=== PATIENT | male | born 1975 | race Caucasian/White ===

== ENCOUNTER 2023-06-23 15:46 | Observation (INO) ==
--- NOTE | 2023-06-23 15:55 | ED Triage Note ---
Date of Service June 23, 2023 Provider in Triage Author: Jacquelin Garcia History of Present Illness This patient was briefly evaluated while in triage. An abbreviated physical exam was performed. This patient is a 48-year-old Male who presents to the ED for evaluation [facility] sent by [facility] physician for "cardiac assessment" reportedly had an abnormal EKG and echo in the last week no current complaints per patient caller from medical at the [facility] reports [place]UM[place] and SOB when laying down Physical Exam GENERAL: NAD CARDIOVASCULAR: RRR RESPIRATORY: CTA ABDOMEN: BS x 4. Nontender to palpation. Initial orders for labs and / or imaging were placed and patient was placed in the waiting area until a bed is available. Please see further documentation for the full ED course.
[2023-06-23 16:23] LABS: Basophils # (auto) 0.05 K/uL (0.00-0.20); Basophils % (auto) 0.5 %; Eosinophils # (auto) 0.08 K/uL (0.00-0.50); Eosinophils % (auto) 0.8 %; Hematocrit (blood only) 40.1 % (42.0-52.0); Hemoglobin 13.7 g/dl (14.0-18.0); Immature Granulocytes # (auto) 0.01 K/uL (0.01-0.20); Immature Granulocytes % (auto) 0.1 %; Lymphocytes # (auto) 3.75 K/uL (1.20-3.40); Mean Corpuscular Hemoglobin 28.5 pg (25.0-34.0); Mean Corpuscular Hgb Conc 34.2 g/dL (32.0-36.0); Mean Corpuscular Volume 83.5 fL (80.0-100.0); Mean Platelet Volume 10.5 fL (9.4-12.4); Monocytes # (auto) 0.94 K/uL (0.11-0.59); Monocytes % (auto) 9.8 %; Neutrophils # (auto) 4.78 K/uL (1.40-6.50); Neutrophils % (auto) 49.8 %; Platelet Count 283 K/uL (130-400); RDW Coefficient of Variation 12.4 % (11.5-14.5); RDW Standard Deviation 37.7 fL (36.4-46.3); White Blood Count 9.61 K/ul (4.8-10.8)
--- NOTE | 2023-06-23 16:24 | XRay Report ---
XR chest 2V PA/lateral CLINICAL HISTORY: Chest pain, nonspecific TECHNIQUE: 2 views of the chest were obtained. Comparison: Comparison is made to chest radiograph 09/14/2022 FINDINGS: No lines and tubes are seen. The cardiomediastinal silhouette is stable. The lungs are clear. No evid ence of pleural effusion or pneumothorax. IMPRESSION: No acute chest disease. ACT 112: Negative or not required by law. Electronically signed by: Raymond Tenorio M.D. 06/23/2023 4:23 PM
[2023-06-23 16:42] LABS: Albumin Level 5.1 gm/dl (3.4-5.0); BUN Creatinine Ratio 20.8 (10-20); Bilirubin,Total 0.7 mg/dl (0.2-1.0); Calcium 9.7 mg/dl (8.6-10.3); Creatinine Clr Calc Pharmacy 108.3 ml/min; Est GFR (African American) 96.4 ml/min; Est GFR (Non-African American) 83.2 ml/min; Globulin 2.6 gm/dl (2.5-4.0); Potassium 3.6 mmol/L (3.5-5.1); Total Protein 7.7 gm/dl (6.0-8.3)
[2023-06-23 16:49] LABS: Troponin I High Sensitivity 8.2 pg/ml (0-20)
[2023-06-23 16:51] LABS: Partial Thromboplastin Time 28 Seconds (21-31); Prothrombin Time 10.6 Seconds (9.0-12.0)
[2023-06-23 17:46] LABS: Magnesium 2.1 mg/dl (1.7-2.4)
--- NOTE | 2023-06-23 18:38 | History & Physical Report ---
Date of Service June 23, 2023 Assessment & Plan (1) Abnormal echocardiogram: Plan: This is a 48yo M with PMH of COPD, mood disorder, GENARO generally noncompliant with CPAP who was sent from [facility] for abnormal EKG and 2D echo in the past week. No report was provided Phone sign out to ED was that patient reported to [facility] a week ago with complaints of orthopnea and echo showed severely reduced EF at 22% EKG today with sinus rhythm with marked sinus arrhythmia and PACs that have previously been noted, aberrant conduction now present Patient is resting comfortably, vital signs stable, initial troponin and electrolytes within normal limits Chest x-ray with stable cardiomediastinal silhouette, lungs are clear, no acute chest disease Discussed with [facility] staff, who are faxing over med list and echo report Repeat 2D echo, repeat EKG in AM, routine cardiology consult (2) COPD (chronic obstructive pulmonary disease): Plan: Chronic, stable. No longer smoking. Continue home inhalers (3) BPH (benign prostatic hyperplasia): Plan: Chronic, stable. Continue tamsulosin, bladder scan PRN (4) Depressive disorder: (5) Panic disorder: Plan: Chronic, stable. Continue buspirone DVT Ppx: SQ heparin Code status: FULL PCP: JACK Peters Dispo: obs PCU Patient seen in collaboration with Dr. Mathias. Please see addendum. I spent a total of 60 minutes coordinating, documenting, and providing care for this patient excluding time spent in the performance of separately billed services. History of Present Illness Chief Complaint: abnormal ekg and echo Primary Care Provider: [facility] This is a 48yo M with PMH of COPD, mood disorder, GENARO generally noncompliant with CPAP who was sent from [facility] for abnormal EKG and 2D echo in the past week. No records were sent but patient reportedly had EF reduced at 22%. Recently presented to [facility] due to shortness of breath laying flat and underwent echo within the last week, patient thinks. Today, he states he is able to lay down flat but has difficulty breathing when on right side and has interm ittent cramping chest pains when in that position. Otherwise denies any chest pain or SOB with exertion. Denies any lower extremity swelling or PND. Denies weight gain. No recent illness, no F/C, lightheadedness, wheezing, N/V, abdominal pain, dysuria, diarrhea or constipation. Endorses remote use of cocaine when he was a teenager but has been incarcerated for most of his life. Endorses former use of tobacco, marijuana, K2 and Suboxone at various points while at [facility] but nothing recently. Denies any knowledge of heart condition in the past besides admission in September 2022 for PVCs when he was discharged from ED. No known family history of HD, CHF or arrhythmias. Allergies Allergy/AdvReac Type Severity Reaction Status Date / Time No Known Allergies Allergy Verified 06/23/23 19:36 Home Medications Medication Instructions Recorded Confirmed Type fluticasone 500 mcg-salmeterol 50 1 inh inhalation BID 03/11/21 06/23/23 History mcg/dose blistr powdr for inhalation (Wixela Inhub) omeprazole 40 mg capsule,delayed 40 mg PO QAM 03/11/21 06/23/23 History release albuterol sulfate 90 mcg/actuation 2 puff inhalation QID PRN 06/23/23 06/23/23 History aerosol inhaler Shortness Of Breath Or Wheezing aspirin 81 mg tablet,delayed 81 mg PO DAILY 06/23/23 06/23/23 History release cetirizine 10 mg tablet (Zyrtec) 10 mg PO DAILY 06/23/23 06/23/23 History diclofenac sodium 100 mg 100 mg PO BID 06/23/23 06/23/23 History tablet,extended release 24 hr furosemide 20 mg tablet (Lasix) 20 mg PO QAM 06/23/23 06/23/23 History gabapentin 300 mg capsule 300 mg PO TID 06/23/23 06/23/23 History lisinopril 20 mg tablet 20 mg PO DAILY 06/23/23 06/23/23 History methylprednisolone 4 mg tablets in 0 mg PO DAILY 06/23/23 06/23/23 History a dose pack (Medrol (Sathya)) metoprolol tartrate 25 mg tablet 25 mg PO BID 06/23/23 06/23/23 History spironolactone 25 mg tablet 25 mg PO DAILY 06/23/23 06/23/23 History (Aldactone) Past Med/Surg History Medical History (Updated 06/23/23 @ 19:17 by Heaven Peñaloza PA-C) BPH (benign prostatic hyperplasia) Bladder pain Nocturia Lower urinary tract symptoms GENARO (obstructive sleep apnea) Per records Obesity (BMI 30-39.9) Incarcerated umbilical hernia GERD (gastroesophageal reflux disease) Persistent asthma Per records COPD (chronic obstructive pulmonary disease) inhaler daily/prn Panic disorder Depressive disorder Surgical History (Updated 06/23/23 @ 19:17 by Heaven Peñaloza PA-C) H/O ventral hernia repair (06/26/21) Robotic Laparoscopic Umbilical and Ventral Hernia Repair- Reginald Irwin DO, TORITO 06/26/2021 H/O umbilical hernia repair (06/26/21) Robotic Laparoscopic Umbilical and Ventral Hernia Repair- Reginald Irwin DO, FACS 06/26/2021 Family History Other Asthma COPD (chronic obstructive pulmonary disease) Social History Smoking Status: Former smoker Preferred Language: Paraguayan Communication Ability: unknown Visual Impairment: No Limitations Grab Jack Worker Required: No Beliefs That Will Affect Care: None marital status: Single Current Living Situation: Other Current Living Situation Comment: Incarcerated Feels Safe at Home: Yes Review of Systems Review of Systems: At least ten systems reviewed and negative except as noted in the HPI. Physical Exam Physical Exam: General Appearance: WD/WN, vitals as above, NAD, sitting up in bed, pleasant, conversing easily Head: normocephalic, atraumatic Eyes: normal inspection, PERRL, conjunctivae normal, anicteric sclerae ENT: external ear and nose normal, oropharynx normal Neck: normal visual inspection, trachea midline, no thyromegaly Respiratory: normal respiratory effort, lungs clear to auscultation, no wheeze, rales, rhonchi. No accessory muscle use Cardiovascular: regular rate with ectopy, regular rhythm, normal peripheral pulses, no BLE edema. Vessels: no JVD Chest: normal inspection of chest Abdomen/GI: normal bowel sounds, soft, nontender, no hepatosplenomegaly Extremities/Musculoskeletal: no cyanosis or clubbing, extremities motor strength 5/5 Neurologic: PERRL, EOMI, accommodation nl, no face palsy, no dysarthria, CN's II-XI intact bilaterally and moves all extremities Psychiatric: A+Ox3, euthymic affect Skin: no rashes, normal color, warm/dry Results & Data Results & Data Vital Signs (Past 12 Hours) Vital Signs Temp Pulse Pulse Resp BP BP Pulse Ox 06/23/23 18:35 85 18 96 06/23/23 18:30 77 24 96 06/23/23 18:00 66 19 95 06/23/23 17:30 83 15 95 06/23/23 17:24 91 H 06/23/23 17:23 89 20 95 06/23/23 17:21 89 19 130/64 97 06/23/23 15:51 36.7 C 64 20 175/83 H 97 O2 Del Method 06/23/23 18:35 Room Air 06/23/23 18:30 06/23/23 18:00 06/23/23 17:30 06/23/23 17:24 06/23/23 17:23 06/23/23 17:21 06/23/23 15:51 Room Air Laboratory Results Short CBC 06/23/23 Range/Units 16:02 WBC 9.61 (4.8-10.8) K/ul Hgb 13.7 L (14.0-18.0) g/dl Hct 40.1 L (42.0-52.0) % Plt Count 283 (130-400) K/uL BMP 06/23/23 16:02 Sodium 142 Potassium 3.6 Chloride 103 Carbon Dioxide 31 BUN 22 Creatinine 1.06 Glucose 98 Calcium 9.7 Liver Function 06/23/23 Range/Units 16:02 Total Bilirubin 0.7 (0.2-1.0) mg/dl AST 16 (13-39) U/L ALT 16 (7-52) U/L Alkaline Phosphatase 72 (34-104) U/L Albumin 5.1 H (3.4-5.0) gm/dl Diagnostic Findings Chest X-Ray 06/23/23 15:55 XR chest 2V PA/lateral CLINICAL HISTORY: Chest pain, nonspecific TECHNIQUE: 2 views of the chest were obtained. Comparison: Comparison is made to chest radiograph 09/14/2022 FINDINGS: No lines and tubes are seen. The cardiomediastinal silhouette is stable. The lungs are clear. No evidence of pleural effusion or pneumothorax. IMPRESSION: No acute chest disease. ACT 112: Negative or not required by law. Electronically signed by: Raymond Tenorio M.D. 06/23/2023 4:23 PM ECG Additional Comments: EKG reviewed- Sinus rhythm with marked sinus arrhythmia with Premature atrial complexes with Aberrant conduction, Prolonged QT Abnormal ECG. When compared with from September 2022, aberrant conduction is now present. Code Status & VTE Plan VTE Prophylaxis Plan VTE Prophylaxis will be ordered: Yes Supervising Physician Co-Signing Physician Notes Attending addendum: The patient was seen and examined in emergency room He was sent in from the senior living with an abnormal EKG and echo Patient is having no symptoms at all-occasional palpitation, no shortness of br eath, no orthopnea, no chest pain, no swelling of the legs He has asthma/COPD and was told that his heart has been working about 25%. On examination Lying in bed without any acute distress Remains hemodynamically stable Chest-clear to auscultate bilaterally Heart S1-S2-, occasional extra beats with a 2/6 ESM over precordium Abdomen-benign Extremities-no edema TAXONOMY TEACHER-alert, awake and oriented x 3. No focal sensory or motor deficit appreciated His admission labs-unremarkable, EKG sinus rhythm with frequent PVCs, chest x- ray COPD changes without any CHF and echo report was not available He will be admitted to telemetry unit and will get repeat echo Cardiology consult and will get echo report from the senior living Continue with her current medication Agree with assessment and plan as outlined above by ISHAN Sharma Dr
[2023-06-23] MEDS: ALBUT/IPRATROP 3MG/0.5MG NEB 3 ML VIAL NEB STA (18:39)
[2023-06-23 22:11] LABS: Appearance Urine Cloudy (Clear); Bacteria Urine Automated Negative (Negative); Bilirubin Urine Negative (Negative); Blood Urine Negative (Negative); Color Urine Dark Yellow; Epithelial Cell Urine Auto >30 /lpf (0-5); Glucose Urine UA Negative (Negative); Ketones Urine Trace (Negative); Leukocyte Esterase Urine Negative (Negative); Nitrite Urine Negative (Negative); Protein Urine 1+ (Negative); RBC Urine Automated 0-4 /hpf (0-4); Urobilinogen Urine Negative (Negative)
[2023-06-23 22:23] LABS: Mucus Urine Present (None Prsent)
[2023-06-23 22:36] LABS: Amphetamines+Metham, Urine Neg (Neg); Barbiturates, Urine Neg (Neg); Benzodiazepine, Urine Neg (Neg); Cocaine, Urine Neg (Neg); MDMA (Ecstacy), Urine Neg (Neg); Marijuana, Urine Neg (Neg); Methadone, Urine Neg (Neg); Opiate, Urine Neg (Neg); Phencyclidine, Urine Neg (Neg)
[2023-06-23] MEDS ORDERED: POLYETHYLENE (MIRALAX) 17 GM PACK PO PRN (22:42)
[2023-06-23] MEDS ORDERED: ACETAMINOPHEN 325 MG TAB PO PRN (22:42)
[2023-06-23] MEDS ORDERED: ALBUTEROL HFA 8 GM INHALER INH PRN (22:42)
[2023-06-23] MEDS ORDERED: ONDANSETRON INJ 2 MG/ML 2 ML VIAL IV PRN (22:42)
--- NOTE | 2023-06-23 23:17 | Emergency Department Note ---
History of Present Illness General Chief complaint: Cardiac Assessment Stated complaint: CARDIAC ASSESSMENT, ABNORMAL EKG Time Seen by Provider: 06/23/23 17:08 History of Present Illness Provider complaint: Poor cardiac function 48-year-old male prisoner with history of cocaine abuse presents emergency department for poor cardiac function. Report was called by the healthcare provider at the retirement who spoke with a colleague of alexa in the emergency department and stated the patient had a recent echo done at their facility which showed an EF of 22%. They stated that they wanted the patient to have a cardiac workup and be admitted for possible cardiac catheterization. This time the patient not reporting any chest pain or difficulty breathing. No falls or syncopal episodes. No melena or hematochezia. Home Medications Medication Instructions Recorded Confirmed Type fluticasone 500 mcg-salmeterol 50 1 inh inhalation BID 03/11/21 06/23/23 History mcg/dose blistr powdr for inhalation (Wixela Inhub) omeprazole 40 mg capsule,delayed 40 mg PO QAM 03/11/21 06/23/23 History release albuterol sulfate 90 mcg/actuation 2 puff inhalation QID PRN 06/23/23 06/23/23 History aerosol inhaler Shortness Of Breath Or Wheezing aspirin 81 mg tablet,delayed 81 mg PO DAILY 06/23/23 06/23/23 History release cetirizine 10 mg tablet (Zyrtec) 10 mg PO DAILY 06/23/23 06/23/23 History diclofenac sodium 100 mg 100 mg PO BID 06/23/23 06/23/23 History tablet,extended release 24 hr furosemide 20 mg tablet (Lasix) 20 mg PO QAM 06/23/23 06/23/23 History gabapentin 300 mg capsule 300 mg PO TID 06/23/23 06/23/23 History lisinopril 20 mg tablet 20 mg PO DAILY 06/23/23 06/23/23 History metoprolol tartrate 25 mg tablet 25 mg PO BID 06/23/23 06/23/23 History spironolactone 25 mg tablet 25 mg PO DAILY 06/23/23 06/23/23 History (Aldactone) Allergies Allergy/AdvReac Type Severity Reaction Status Date / Time No Known Allergies Allergy Verified 06/23/23 19:36 Past Med/Surg History Medical History BPH (benign prostatic hyperplasia) Bladder pain Nocturia Lower urinary tract symptoms GENARO (obstructive sleep apnea) Per records Obesity (BMI 30-39.9) Incarcerated umbilical hernia GERD (gastroesophageal reflux disease) Persistent asthma Per records COPD (chronic obstructive pulmonary disease) inhaler daily/prn Panic disorder Depressive disorder Surgical History H/O ventral hernia repair (06/26/21) Robotic Laparoscopic Umbilical and Ventral Hernia Repair- Reginald Irwin DO, TORITO 06/26/2021 H/O umbilical hernia repair (06/26/21) Robotic Laparoscopic Umbilical and Ventral Hernia Repair- Reginald Irwin DO, FACS 06/26/2021 Family History Other Asthma COPD (chronic obstructive pulmonary disease) Social History Smoking Status: Former smoker Do You Dip or Chew Tobacco: No; Hx Alcohol Use: No Hx Substance Use: No Preferred Language: Lao Communication Ability: Effective Visual Impairment: No Limitations Gate Tender Required: No Beliefs That Will Affect Care: None marital status: Single Current Living Situation: Other Current Living Situation Comment: [employer] Other Information That Helps Us Care for You: No Feels Safe at Home: Yes Safety Concerns: Feels Safe At This Time Assistive Devices: None Physical Exam Vital Signs Vital Signs - 24 hr 06/23/23 15:51 06/23/23 17:21 06/23/23 17:23 Temperature 36.7 C Temperature Source Temporal Artery Scan Pulse Rate 64 89 Pulse Rate [Right Finger] 89 Pulse Rate from SpO2 Sensor 60 Respiratory Rate 20 19 20 Respiratory Effort / Characteristics Non-Labored Spontaneous Respiratory Depth Normal Respiratory Pattern Regular Blood Pressure 175/83 H Blood Pressure [Right Arm] 130/64 Blood Pressure Mean 113 Blood Pressure Mean [Right Arm] 86 Pulse Oximetry 97 97 95 Oxygen Delivery Method Room Air Sepsis Recent Fever Within 48 Hours No Sepsis New/Unexplained Change in Mental Status No Sepsis Action Taken by Nursing No Action Required 06/23/23 17:24 06/23/23 17:30 06/23/23 18:00 Temperature Temperature Source Pulse Rate 91 H 83 66 Pulse Rate [Right Finger] Pulse Rate from SpO2 Sensor 55 L 49 L Respiratory Rate 15 19 Respiratory Effort / Characteristics Respiratory Depth Respiratory Pattern Blood Pressure Blood Pressure [Right Arm] Blood Pressure Mean Blood Pressure Mean [Right Arm] Pulse Oximetry 95 95 Oxygen Delivery Method Sepsis Recent Fever Within 48 Hours Sepsis New/Unexplained Change in Mental Status Sepsis Action Taken by Nursing 06/23/23 18:30 06/23/23 18:35 06/23/23 18:37 Temperature Temperature Source Pulse Rate 77 85 84 Pulse Rate [Right Finger] Pulse Rate from SpO2 Sensor 52 L 48 L Respiratory Rate 24 18 15 Respiratory Effort / Characteristics Respiratory Depth Respiratory Pattern Blood Pressure 135/76 Blood Pressure [Right Arm] Blood Pressure Mean 95 Blood Pressure Mean [Right Arm] Pulse Oximetry 96 96 93 Oxygen Delivery Method Room Air Sepsis Recent Fever Within 48 Hours Sepsis New/Unexplained Change in Mental Status Sepsis Action Taken by Nursing Physical Exam GENERAL: oriented to person, place, and time. appears well-developed and well- nourished. Patient with correctional officers at bedside. HENT: Exam performed. - Head: Normocephalic and atraumatic. EYES: Conjunctivae and EOM are normal. Right eye exhibits no discharge. Left eye exhibits no discharge. No scleral icterus. NECK: Normal range of motion. Neck supple. No JVD present. CV: Normal rate, regular rhythm, normal heart sounds and intact distal pulses. There is no peripheral edema. Palpable radial pulses bue. PULM/CHEST: Effort normal and breath sounds normal. No respiratory distress. No stridor. no wheezes. no rales. ABD: The abdomen is soft. There is no tenderness. NEURO: Motor and sensation grossly intact. SKIN: Skin is warm and dry. He is not diaphoretic. PSYCH: normal mood and affect. Behavior is normal. Judgment and thought content normal. Course Course 170: The patient was evaluated in room C8. A complete history and physical exam was performed Cardiac monitoring: An order was placed for continuous cardiac monitoring. The monitor shows a rate of 90 with sinus rhythm interpreted by me 1845: Vital signs stable. Labs and imaging within normal limits. [facility] requested by the present for his abnormal echocardiogram. Administered Medications Discontinued Medications Albuterol (Albut/Ipratrop 3mg/0.5mg Neb 3 Ml Vial) 3 ml NEB NOW STA; Protocol Stop: 06/23/23 17:49 Last Admin: 06/23/23 18:39 Dose: Not Given Documented By: ALDAIR Medical Decision Making Laboratory Data Attestation: I reviewed the patient's lab results. 06/23/23 16:02 06/23/23 16:02 Lab Results 06/23/23 Range/Units 16:02 WBC 9.61 (4.8-10.8) K/ul RBC 4.80 (4.70-6.10) M/uL Hgb 13.7 L (14.0-18.0) g/dl Hct 40.1 L (42.0-52.0) % MCV 83.5 (80.0-100.0) fL MCH 28.5 (25.0-34.0) pg MCHC 34.2 (32.0-36.0) g/dL RDW Std Deviation 37.7 (36.4-46.3) fL RDW Coeff of Bridget 12.4 (11.5-14.5) % Plt Count 283 (130-400) K/uL MPV 10.5 (9.4-12.4) fL Immature Gran % (Auto) 0.1 % Neut % (Auto) 49.8 % Lymph % (Auto) 39.0 % Dane % (Auto) 9.8 % Eos % (Auto) 0.8 % Baso % (Auto) 0.5 % Neut # (Auto) 4.78 (1.40-6.50) K/uL Lymph # (Auto) 3.75 H (1.20-3.40) K/uL Dane # (Auto) 0.94 H (0.11-0.59) K/uL Eos # (Auto) 0.08 (0.00-0.50) K/uL Baso # (Auto) 0.05 (0.00-0.20) K/uL Immature Gran # (Auto) 0.01 (0.01-0.20) K/uL PT 10.6 (9.0-12.0) Seconds INR 1.0 (0.9-1.1) APTT 28 (21-31) Seconds PTT Ratio 1.0 Sodium 142 (136-145) mmol/L Potassium 3.6 (3.5-5.1) mmol/L Chloride 103 (98-107) mmol/L Carbon Dioxide 31 (21-32) mmol/L Anion Gap 8 (3-11) BUN 22 (6-23) mg/dl Creatinine 1.06 (0.6-1.4) mg/dl Est Cr Clr Drug Dosing 108.3 ml/min Est GFR ( Amer) 96.4 ml/min Est GFR (Non-Af Amer) 83.2 ml/min BUN/Creatinine Ratio 20.8 H (10-20) Glucose 98 (70-99(Fasting)) mg/dl Calcium 9.7 (8.6-10.3) mg/dl Magnesium 2.1 (1.7-2.4) mg/dl Total Bilirubin 0.7 (0.2-1.0) mg/dl AST 16 (13-39) U/L ALT 16 (7-52) U/L Alkaline Phosphatase 72 (34-104) U/L Troponin I High Sens 8.2 (0-20) pg/ml Total Protein 7.7 (6.0-8.3) gm/dl Albumin 5.1 H (3.4-5.0) gm/dl Globulin 2.6 (2.5-4.0) gm/dl Albumin/Globulin Ratio 2.0 (0.9-2) Imaging Data Attestation: I personally reviewed and interpreted this imaging study as follows: My Impression: Chest x-ray negative. Airway clear. No pneumothorax. No consolidation. No cardiomegaly or cephalization.. No free air under the diaphragm. No fractures of the skeletal structures. Radiologist's Impression: Chest X-Ray 06/23/23 15:55 XR chest 2V PA/lateral CLINICAL HISTORY: Chest pain, nonspecific TECHNIQUE: 2 views of the chest were obtained. Comparison: Comparison is made to chest radiograph 09/14/2022 FINDINGS: No lines and tubes are seen. The cardiomediastinal silhouette is stable. The lungs are clear. No evidence of pleural effusion or pneumothorax. IMPRESSION: No acute chest disease. ACT 112: Negative or not required by law. Electronically signed by: Raymond Tenorio M.D. 06/23/2023 4:23 PM ECG Data Attestation: I personally reviewed and interpreted this ECG as follows: Rate (beats per minute): 94 Rhythm: + normal sinus ECG Intervals/blocks: + Normal QRS, + Normal [place] and + Normal QT-c ECG ST segments: + Normal ST segments ECG Findings: + PVCs [facility] Narrative 1708: The patient was evaluated in room C8. A complete history and physical exam was performed Cardiac monitoring: An order was placed for continuous cardiac monitoring. The monitor shows a rate of 90 with sinus rhythm interpreted by me 1845: Vital signs stable. Labs and imaging within normal limits. Patient will be admitted to the [facility] hospitalist team for cardiac evaluation as requested by the present for his abnormal echocardiogram. Impression & Plan Abnormal echocardiogram Discharge Plan Visit Data Chief Complaint: Cardiac Assessment Stated Complaint: CARDIAC ASSESSMENT, ABNORMAL EKG ED Provider: Jose Roberto Wiley Discharge Problem: Abnormal echocardiogram Patient Disposition: Being Evaluated by Hospitalist Discharge Instructions Interventions: ED Discharge Assessment Last Done: 06/23/23 22:42
[2023-06-24] MEDS: DICLOFENAC SODIUM 25 MG TABDR PO SCH (00:31)
[2023-06-24] MEDS: METOPROLOL TARTRATE 25 MG TAB PO SCH (00:31)
[2023-06-24] MEDS: GABAPENTIN 300 MG CAP PO SCH (00:31)
[2023-06-24] MEDS: HEPARIN SOD 5,000 UNIT/0.5 ML VIAL SQ SCH (00:31)
[2023-06-24 04:31] LABS: Hematocrit (blood only) 36.6 % (42.0-52.0); Hemoglobin 12.3 g/dl (14.0-18.0); Mean Corpuscular Hemoglobin 28.3 pg (25.0-34.0); Mean Corpuscular Hgb Conc 33.6 g/dL (32.0-36.0); Mean Corpuscular Volume 84.1 fL (80.0-100.0); Mean Platelet Volume 10.4 fL (9.4-12.4); Platelet Count 227 K/uL (130-400); RDW Coefficient of Variation 12.4 % (11.5-14.5); RDW Standard Deviation 37.4 fL (36.4-46.3); Red Blood Count 4.35 M/uL (4.70-6.10); White Blood Count 6.62 K/ul (4.8-10.8)
[2023-06-24 04:33] LABS: BUN Creatinine Ratio 19.3 (10-20); Calcium 8.9 mg/dl (8.6-10.3); Chol HDL Ratio 4.4 (0-5); Creatinine Clr Calc Pharmacy 137.4 ml/min; Est GFR (African American) 121.4 ml/min; Est GFR (Non-African American) 104.8 ml/min; Potassium 4.2 mmol/L (3.5-5.1)
[2023-06-24 07:40] LABS: Estimated Average Glucose 105 mg/dl; Hemoglobin A1C 5.3 % (4.5-5.6)
--- NOTE | 2023-06-24 08:05 | Hospitalist Progress Note ---
Date of Service June 24, 2023 Assessment & Plan (1) Abnormal echocardiogram: (2) COPD (chronic obstructive pulmonary disease): (3) BPH (benign prostatic hyperplasia): (4) Depressive disorder: (5) Panic disorder: Plan Mr. Cheatham is a 48yo gentleman with PMH of COPD, mood disorder, GENARO generally noncompliant with CPAP who was sent from [facility] for abnormal EKG and 2D echo in the past week. Patient states that he felt nasal congestion. The physician at the [facility] did a chest x ray and told him that his heart looked "too big" and his EKG was "not normal." He states he doesn't have orthopnea, chest pain, SOB/BRUMFIELD, or edema. He denies family history of heart issues/sudden cardiac . He denies any recent illness. #New onset Heart Failure with reduced ejection fraction #Nonischemic cardiomyopathy #Frequent Ventricular Ectopy Phone sign out to ED was that patient reported to [facility] a week ago with complaints of congestion and echo showed severely reduced EF at 22% EKG today with sinus rhythm with marked sinus arrhythmia and PACs that have p reviously been noted, aberrant conduction now present Chest x-ray with stable cardiomediastinal silhouette, lungs are clear, no acute chest disease Discussed with [facility] staff, who are faxing over med list and echo report ECHO 06/24 15-20%, severe global hypokinesis of LV, mildly dlated LA Lipid panel: LDL 104 LH: normal coronaries Denies any longstanding history of substance abuse--endorses occasional cocacine/marijuana, but nothing "consistent" or habitual GDMT: -Spironolactone 12.5mg daily -Lisinopril 10mg daily -Furosemide 20mg daily -Metoprolol XL 25mg qam Further autoimmune, HIV labs sent for eval #Chronic normocytic anemia -B12, folate, iron studies in am #COPD Chronic, stable. No longer smoking. Continue home inhalers #BPH Chronic, stable. Continue tamsulosin, bladder scan PRN #Panic Disorder Chronic, stable. Continue buspirone DVT Ppx: SQ heparin Code status: FULL PCP: JACK [place] Dispo: obs PCU Admission and Anticipated Discharge Date Admission Date: June 23, 2023 Subjective Patient evalauted at [facility] s/p C Denies any chest pain or acute concerns; reports not understanding current situation, Time spent to explain "heart failure", all questions answered at bedisde Patient reports feeling relatively asymptomatic and with strong appetite Physical Exam Constitutional: WD/WN, vitals as above Respiratory: normal respiratory effort, lungs clear to auscultation Cardiovascular: RRR, no murmur, no edema Gastrointestinal (Abdomen): normal bowel sounds, soft, nontender, no hepatosplenomegaly Musculoskeletal: no cyanosis or clubbing, extremities motor strength 5/5 Results & Data Results & Data Vital Signs (Past 12 Hours) Vital Signs Pulse Resp BP Pulse Ox O2 Del Method 06/24/23 07:38 61 06/24/23 06:01 62 15 98 06/24/23 06:01 116/66 06/24/23 06:00 72 19 96 06/24/23 04:04 58 L 14 121/61 98 06/24/23 02:00 39 L 12 119/52 L 95 Room Air 06/24/23 01:56 57 L 14 117/57 L 95 Room Air 06/24/23 00:00 86 17 98 Room Air 06/23/23 23:00 92 H 21 140/68 98 Room Air 06/23/23 23:00 Room Air 06/23/23 23:00 Room Air 06/23/23 21:50 90 06/23/23 21:00 76 15 119/58 L 96 Room Air 06/23/23 20:31 84 18 134/58 L 97 Room Air Laboratory Results Short CBC 06/23/23 06/24/23 Range/Units 16:02 04:03 WBC 9.61 6.62 (4.8-10.8) K/ul Hgb 13.7 L 12.3 L (14.0-18.0) g/dl Hct 40.1 L 36.6 L (42.0-52.0) % Plt Count 283 227 (130-400) K/uL BMP 06/23/23 06/24/23 16:02 04:03 Sodium 142 140 Potassium 3.6 4.2 Chloride 103 105 Carbon Dioxide 31 31 BUN 22 16 Creatinine 1.06 0.83 Glucose 98 100 H Calcium 9.7 8.9 Liver Function 06/23/23 Range/Units 16:02 Total Bilirubin 0.7 (0.2-1.0) mg/dl AST 16 (13-39) U/L ALT 16 (7-52) U/L Alkaline Phosphatase 72 (34-104) U/L Albumin 5.1 H (3.4-5.0) gm/dl Urine 06/23/23 Range/Units Unknown Urine Color Dark Yellow Urine Appearance Cloudy A (Clear) Urine pH 6.0 (4.5-7.5) Ur Specific [place] 1.040 H (1.000-1.030) Urine Protein 1+ H (Negative) Urine Glucose (UA) Negative (Negative) Medications Administered Home Medications Medication Instructions Recorded Confirmed Last Taken fluticasone 500 mcg-salmeterol 50 1 inh inhalation BID 03/11/21 06/23/23 06/23/23 07:30 mcg/dose blistr powdr for inhalation (Wixela Inhub) omeprazole 40 mg capsule,delayed 40 mg PO QAM 03/11/21 06/23/23 06/23/23 release albuterol sulfate 90 mcg/actuation 2 puff inhalation QID PRN 06/23/23 06/23/23 Unknown aerosol inhaler Shortness Of Breath Or Wheezing aspirin 81 mg tablet,delayed 81 mg PO DAILY 06/23/23 06/23/23 06/23/23 release cetirizine 10 mg tablet (Zyrtec) 10 mg PO DAILY 06/23/23 06/23/23 06/23/23 diclofenac sodium 100 mg 100 mg PO BID 06/23/23 06/23/23 06/23/23 07:30 tablet,extended release 24 hr furosemide 20 mg tablet (Lasix) 20 mg PO QAM 06/23/23 06/23/23 06/23/23 gabapentin 300 mg capsule 300 mg PO TID 06/23/23 06/23/23 06/23/23 12:00 lisinopril 20 mg tablet 20 mg PO DAILY 06/23/23 06/23/23 06/23/23 metoprolol tartrate 25 mg tablet 25 mg PO BID 06/23/23 06/23/23 06/23/23 07:00 spironolactone 25 mg tablet 25 mg PO DAILY 06/23/23 06/23/23 06/23/23 (Aldactone) Active Medications Generic Name Dose Route Start Last Admin Trade Name Freq PRN Reason Stop Dose Admin Aspirin 81 mg 06/24/23 09:00 06/24/23 08:43 Aspirin 81 Mg Ectab PO 07/24/23 08:59 81 mg DAILY KENNEDI Administration Cetirizine HCl 10 mg 06/24/23 09:00 06/24/23 08:45 Cetirizine Hcl 10 Mg Tablet PO 07/24/23 08:59 10 mg DAILY KENNEDI Administration Diclofenac Sodium 100 mg 06/23/23 22:42 06/24/23 08:43 Diclofenac Sodium 25 Mg Tabdr PO 07/23/23 22:41 100 mg BID KENNEDI Administration Fluticasone/Vilanterol 1 puffs 06/24/23 09:00 06/24/23 08:42 Fluticasone/Vilanterol 200/25mcg 14 Puffs/Inhaler INH 07/24/23 08:59 Not Given DAILY KENNEDI Furosemide 20 mg 06/24/23 09:00 06/24/23 08:46 Furosemide 20 Mg Tab PO 07/24/23 08:59 20 mg QAM KENNEDI Administration Gabapentin 300 mg 06/23/23 22:42 06/24/23 08:45 Gabapentin 300 Mg Cap PO 07/23/23 22:41 300 mg TID KENNEDI Administration Heparin Sodium (Porcine) 5,000 units 06/23/23 22:42 06/24/23 06:06 Heparin Sod 5,000 Unit/0.5 Ml Vial SQ 07/23/23 22:41 5,000 units Q8 KENNEDI Administration Pantoprazole Sodium 40 mg 06/24/23 09:00 06/24/23 08:44 Pantoprazole 40 Mg Tab PO 07/24/23 08:59 40 mg QAM KENNEDI Administration
--- NOTE | 2023-06-24 08:34 | Cardiology Consultation ---
Date of Consultation June 24, 2023 Assessment & Plan (1) Systolic congestive heart failure: (2) Frequent PVCs: (3) Bradycardia: (4) Abnormal EKG: (5) Abnormal echocardiogram: Plan Systolic congestive heart failure. NYHA Class I-II. LVEF reported as 20 to 24% (echo pending this admission). Narrow QRS duration. Patient maintaining sinus rhythm with frequent PVCs and nocturnal bradycardia (untreated obstructive sleep apnea). Volume status: Normovolemic. Recommendations: 1. Evaluate possible etiologies. 2. Refer for diagnostic cardiac catheterization 3. Initiate guideline directed medical therapies. 4. Compliance with CPAP therapy. 5. Further recommendations pending evaluation by Dr. Lewis and patient's ongoing hospitalization. Supervising Physician Co-Signing Physician Notes Patient was seen and personally examined. Agree with full assessment and plan as outlined by advanced provider. 48-year-old [facility] inmate recently evaluated initially for symptoms of nasal congestion.ears. Chest x-ray demonstrated cardiomegaly and subsequent EKG sinus with frequent ventricular ectopy. Echocardiogram at [facility] and on repeat demonstrates diffuse LV dysfunction. No history of angina, myocardial infarction, congestive heart failure per patient. Management discussed in detail Laboratory testing pending renal function normal Patient incarcerated for 6 yrs Exam: Heart rate 80 blood pressure 124/65 No jugular venous tension or carotid bruit Lungs clear to auscultation Cardiovascular exam regular with frequent ventricular ectopy, no audible murmur Right radial pulse 2+, femoral pulses 2+ No edema Impression: 48-year-old male with newly diagnosed diffuse cardiomyopathy class I 2 symptoms Management options discussed with patient laboratory testing performed Echocardiogram reviewed Discussed exclusion of coronary artery disease and patient scheduled for diagnostic coronary angiography today. Procedure and risk explained in detail to the patient and informed consent obtained History of Present Illness Reason for Consultation: Abnormal EKG. Abnormal resting echocardiogram Requesting Physician: Heaven Peñaloza PA-C/Dr. Mathias Attending Physician: Dr. Rudd History of Present Illness Aj Cheatham is a 49-year-old male prisoner at [facility] who was referred to the [facility] Emergency Room on June 23, 2023 for cardiac evaluation. Patient notes [facility] where an abnormal EKG was observed and resting echocardiography revealed se verely reduced left ventricular systolic function with an ejection fraction of 22%. Patient describes being placed on activity restriction. Approximately one week ago he was prescribed furosemide, spironolactone, lisinopril, and metoprolol tartrate. He notes taking these medications one day only, not continuing as he did not feel the need. Patient denies cardiac history and current cardiac complaints. Notes being placed on activity restriction, previously without cardiopulmonary limitation. Patient specifically denies history of CAD, [place], CHF, arrhythmia, heart murmur, rheumatic fever, or scarlet fever. Patient denies chest pain, palpitations other than those associated with strenuous activity, shortness of breath, supine cough, orthopnea, PND, abdominal bloating, lower extremity peripheral edema, activity related dizziness, near-syncope, or syncope. Data: - EKG on presentation to the ER revealed sinus rhythm at 94 bpm with marked sinus arrhythmia with premature ventricular complexes and a QTc of 480 ms. - HS Troponin negative x 1 - BNP not obtained - Review of telemetry in the ER, C08, reveals sinus/sinus bradycardia with frequent ectopy. Bradycardia into the 30s noted overnight - Chest x-ray showed a stable cardiomediastinal silhouette with clear lungs, without evidence of pleural effusion or pneumothorax - CBC this morning revealed a white blood cell count was normal, 6.62. H&H were low at 12.3 and 36.6. Platelet count was normal at 227 K. - Chemistry panel this morning a sodium of 140. Potassium 4.2. BUN 16. Creatinine 0.83. Fasting glucose 100. Hemoglobin A1c 5.3%. Calcium 8.9 - Lipid panel performed on June 24, 2023 demonstrated the following: Total cholesterol 159. LDL 104. HDL 36. Triglycerides 94. - TSH was normal on September 14, 2022, 2.195 uIu/mL Past Medical and Surgical History Systolic congestive heart failure, EF 22% Frequent PVCs COPD/asthma Sleep apnea, noncompliant with CPAP GERD BPH with LUTS Mood disorder Panic disorder Incarcerated umbilical hernia status post repair Ventral hernia status postrepair Family History: Not notable for coronary artery disease. Multiple family members young from drug overdoses. Social History: Originally from the [place] area. Notes being incarcerated most of his life. Notes prior tobacco use, none of late. Notes history of substance abuse including cocaine as a teenager and various substances throughout his incarceration including marijuana, K2, Suboxone. No substance abuse recently. No alcohol. Allergies Allergy/AdvReac Type Severity Reaction Status Date / Time No Known Allergies Allergy Verified 06/23/23 19:36 Home Medications Medication Instructions Recorded Confirmed Type fluticasone 500 mcg-salmeterol 50 1 inh inhalation BID 03/11/21 06/23/23 History mcg/dose blistr powdr for inhalation (Wixela Inhub) omeprazole 40 mg capsule,delayed 40 mg PO QAM 03/11/21 06/23/23 History release albuterol sulfate 90 mcg/actuation 2 puff inhalation QID PRN 06/23/23 06/23/23 History aerosol inhaler Shortness Of Breath Or Wheezing aspirin 81 mg tablet,delayed 81 mg PO DAILY 06/23/23 06/23/23 History release cetirizine 10 mg tablet (Zyrtec) 10 mg PO DAILY 06/23/23 06/23/23 History diclofenac sodium 100 mg 100 mg PO BID 06/23/23 06/23/23 History tablet,extended release 24 hr furosemide 20 mg tablet (Lasix) 20 mg PO QAM 06/23/23 06/23/23 History gabapentin 300 mg capsule 300 mg PO TID 06/23/23 06/23/23 History lisinopril 20 mg tablet 20 mg PO DAILY 06/23/23 06/23/23 History metoprolol tartrate 25 mg tablet 25 mg PO BID 06/23/23 06/23/23 History spironolactone 25 mg tablet 25 mg PO DAILY 06/23/23 06/23/23 History (Aldactone) Patient History Medical History BPH (benign prostatic hyperplasia) Bladder pain Nocturia Lower urinary tract symptoms GENARO (obstructive sleep apnea) Per records Obesity (BMI 30-39.9) Incarcerated umbilical hernia GERD (gastroesophageal reflux disease) Persistent asthma Per records COPD (chronic obstructive pulmonary disease) inhaler daily/prn Panic disorder Depressive disorder Surgical History H/O ventral hernia repair (06/26/21) Robotic Laparoscopic Umbilical and Ventral Hernia Repair- Reginald Irwin DO, TORITO 06/26/2021 H/O umbilical hernia repair (06/26/21) Robotic Laparoscopic Umbilical and Ventral Hernia Repair- Reginald Irwin DO, FACS 06/26/2021 Family History Other Asthma COPD (chronic obstructive pulmonary disease) Social History Smoking Status: Former smoker Do You Dip or Chew Tobacco: No; Hx Alcohol Use: No Hx Substance Use: No Preferred Language: Turkmen Communication Ability: Effective Visual Impairment: No Limitations Nylon Hot Wire Cutter Required: No Beliefs That Will Affect Care: None marital status: Single Current Living Situation: Other Current Living Situation Comment: [employer] Other Information That Helps Us Care for You: No Feels Safe at Home: Yes Safety Concerns: Feels Safe At This Time Assistive Devices: None Review of Systems Review of Systems: Complete Review of Systems: Constitutional: No change in weight. No recent illness. No fevers, night sweats, or chills. HENT: No amaurosis fugax. Pulmonary: COPD. Untreated sleep apnea Cardiac: See above. GI/Abd: No dysphagia. No melana or hematochezia. Denies liver or kidney problems. Vascular: No history of carotid disease, AAA, or claudication No coagulation disorder, anemia, or abnormal bleeding. Musculoskeletal: Negative. Skin: Mulitple tattoos. No rash. Neurologic: No history of TIA, CVA, or seizure. Male : Nocturia. BPH. Endocrine: Denies DM or thyroid problems. Complete Review of Systems is as stated above, negative, or noncontributory. Physical Exam Physical Exam: General: A&Ox3. NAD. Skin: Multiple tattoos HENT: Normocephalic. Atraumatic. Eyes: PER. Conjunctiva pink, sclera clear. Neck: No carotid bruits. No JVD. No HJR. Heart: Irregular with frequent ectopy, heart rates in the 70's. No murmur appreciated. No rub. PMI is displaced. Lungs: Clear to auscultation. Abdomen: +BS. Soft. Nontender. No masses or organomegaly. Extremities: No clubbing, cyanosis, or edema. Limited neurological examination is without focal deficits. Pulses: radial=2/4, posterior tibial=2/4. Results & Data Vital Signs (Past 12 Hours) Vital Signs Pulse Resp BP Pulse Ox O2 Del Method 06/24/23 07:38 61 06/24/23 06:01 62 15 98 02/14/24 06:01 116/66 06/24/23 06:00 72 19 96 06/24/23 04:04 58 L 14 121/61 98 06/24/23 02:00 39 L 12 119/52 L 95 Room Air 06/24/23 01:56 57 L 14 117/57 L 95 Room Air 06/24/23 00:00 86 17 98 Room Air 06/23/23 23:00 92 H 21 140/68 98 Room Air 06/23/23 23:00 Room Air 06/23/23 23:00 Room Air 06/23/23 21:50 90 06/23/23 21:00 76 15 119/58 L 96 Room Air Laboratory Results Cardiac Enzymes 06/23/23 Range/Units 16:02 AST 16 (13-39) U/L Troponin I High Sens 8.2 (0-20) pg/ml Coagulation 06/23/23 Range/Units 16:02 PT 10.6 (9.0-12.0) Seconds APTT 28 (21-31) Seconds Lipids 06/24/23 Range/Units 04:03 Triglycerides 94 (0-150) mg/dl Cholesterol 159 (0-200) mg/dl HDL Cholesterol 36 mg/dl Cholesterol/HDL Ratio 4.4 (0-5) CBC 06/23/23 06/24/23 Range/Units 16:02 04:03 WBC 9.61 6.62 (4.8-10.8) K/ul RBC 4.80 4.35 L (4.70-6.10) M/uL Hgb 13.7 L 12.3 L (14.0-18.0) g/dl Hct 40.1 L 36.6 L (42.0-52.0) % Plt Count 283 227 (130-400) K/uL Neut # (Auto) 4.78 (1.40-6.50) K/uL Lymph # (Auto) 3.75 H (1.20-3.40) K/uL [place] # (Auto) 0.94 H (0.11-0.59) K/uL Eos # (Auto) 0.08 (0.00-0.50) K/uL Baso # (Auto) 0.05 (0.00-0.20) K/uL Comprehensive Metabolic Panel 06/23/23 06/24/23 Range/Units 16:02 04:03 Sodium 142 140 (136-145) mmol/L Potassium 3.6 4.2 (3.5-5.1) mmol/L Chloride 103 105 (98-107) mmol/L Carbon Dioxide 31 31 (21-32) mmol/L BUN 22 16 (6-23) mg/dl Creatinine 1.06 0.83 (0.6-1.4) mg/dl Glucose 98 100 H (70-99(Fasting)) mg/dl Calcium 9.7 8.9 (8.6-10.3) mg/dl AST 16 (13-39) U/L ALT 16 (7-52) U/L Alkaline Phosphatase 72 (34-104) U/L Total Protein 7.7 (6.0-8.3) gm/dl Albumin 5.1 H (3.4-5.0) gm/dl Intake and Output 06/23/23 06/24/23 06/24/23 22:59 06:59 14:59 Intake Total 0 / 0 Balance 0 / 0 Intake: Oral 0 / 0 Other: Weight 104.326 kg 103.8 kg Weight Measurement Method Built in [facility] Built in [facility]
[2023-06-24] MEDS: FLUTICASONE/VILANTEROL 200/25MCG 14 PUFFS/INHALER INH SCH (08:42)
[2023-06-24] MEDS: ASPIRIN 81 MG ECTAB PO SCH (08:43)
[2023-06-24] MEDS: PANTOprazole 40 MG TAB PO SCH (08:44)
[2023-06-24] MEDS: CETIRIZINE HCL 10 MG TABLET PO SCH (08:45)
[2023-06-24] MEDS: lisinopril 20 MG TAB PO SCH (08:45)
[2023-06-24] MEDS: FUROSEMIDE 20 MG TAB PO SCH (08:46)
[2023-06-24] MEDS: SPIRONOLACTONE 25 MG TAB PO SCH (08:46)
--- NOTE | 2023-06-24 09:35 | Pre Anesthesia Assessment ---
Date of Service June 24, 2023 Pre Sedation Assessment Vital Signs Temp Pulse Pulse Resp BP BP Pulse Ox 06/24/23 08:40 79 16 96 06/24/23 08:40 124/65 06/24/23 08:00 67 13 06/24/23 07:38 61 06/24/23 06:01 62 15 98 06/24/23 06:01 116/66 06/24/23 06:00 72 19 96 06/24/23 04:04 58 L 14 121/61 98 06/24/23 02:00 39 L 12 119/52 L 95 06/24/23 01:56 57 L 14 117/57 L 95 06/24/23 00:00 86 17 98 06/23/23 23:00 92 H 21 140/68 98 06/23/23 23:00 06/23/23 23:00 06/23/23 21:50 90 06/23/23 21:00 76 15 119/58 L 96 06/23/23 20:31 84 18 134/58 L 97 06/23/23 19:55 79 16 137/82 98 06/23/23 18:37 84 15 135/76 93 06/23/23 18:35 85 18 96 06/23/23 18:30 77 24 96 06/23/23 18:00 66 19 95 06/23/23 17:30 83 15 95 06/23/23 17:24 91 H 06/23/23 17:23 89 20 95 06/23/23 17:21 89 19 130/64 97 06/23/23 15:51 36.7 C 64 20 175/83 H 97 O2 Del Method 06/24/23 08:40 06/24/23 08:40 06/24/23 08:00 06/24/23 07:38 06/24/23 06:01 06/24/23 06:01 06/24/23 06:00 06/24/23 04:04 06/24/23 02:00 Room Air 06/24/23 01:56 Room Air 06/24/23 00:00 Room Air 06/23/23 23:00 Room Air 06/23/23 23:00 Room Air 06/23/23 23:00 Room Air 06/23/23 21:50 06/23/23 21:00 Room Air 06/23/23 20:31 Room Air 06/23/23 19:55 Room Air 06/23/23 18:37 06/23/23 18:35 Room Air 06/23/23 18:30 06/23/23 18:00 06/23/23 17:30 06/23/23 17:24 06/23/23 17:23 06/23/23 17:21 06/23/23 15:51 Room Air Cardiovascular + regular rate and + regular rhythm + S1 normal and + S2 normal no JVD no edema Respiratory normal respiratory effort, lungs clear to auscultation Pre-Sedation Airway Assessment Smoking Status: Former smoker ASA: ASA3 NPO Status Date of Last Intake of Fluids: 06/23/23 Last Oral Intake of Fluids Comment: Sips of fluids with medications Date of Last Intake of Solid Food: 06/23/23 Procedure Planning Contraindications for Sedation: none Current Medications Reviewed: Yes Notes The planned sedation has been discussed with the patient. Informed Consent was obtained. I have identified the patient, determined the appropriateness of sedation and have assessed the patient immediately prior to the procedure. All medicine(s) and interventions are by my order.
[2023-06-24] MEDS: MIDAZOLAM HCL 1 MG/ML 2ML VIAL ONE (10:31)
[2023-06-24] MEDS: HEPARIN (PORCINE) 1000 UNIT/ML 10 ML (CATH LAB USE ONLY) ONE (10:31)
[2023-06-24] MEDS: fentaNYL citrate PF 100 MCG/2 ML VIAL ONE (10:31)
[2023-06-24] MEDS: OPTIRAY 350 ONE (10:32)
[2023-06-24] MEDS: niCARdipine HCL INJ 2.5 MG/ML 10 ML AMP ONE (10:32)
[2023-06-24] MEDS: NITROGLYCERIN/D5W 100MCG/ML 20ML SYR ONE (10:32)
[2023-06-24] MEDS: IODIXANOL (VISIPAQUE) 320 MG/ML 100ML IV ONE (10:32)
--- NOTE | 2023-06-24 10:34 | Post Anesthesia Assessment ---
Date of Service June 24, 2023 Post Sedation Assessment Vital Signs Temp Pulse Pulse Resp BP BP Pulse Ox 06/24/23 09:42 82 18 134/97 96 06/24/23 09:35 93 H 20 129/69 97 06/24/23 08:40 79 16 96 06/24/23 08:40 124/65 06/24/23 08:00 67 13 06/24/23 07:38 61 06/24/23 06:01 62 15 98 06/24/23 06:01 116/66 06/24/23 06:00 72 19 96 06/24/23 04:04 58 L 14 121/61 98 06/24/23 02:00 39 L 12 119/52 L 95 06/24/23 01:56 57 L 14 117/57 L 95 06/24/23 00:00 86 17 98 06/23/23 23:00 92 H 21 140/68 98 06/23/23 23:00 06/23/23 23:00 06/23/23 21:50 90 06/23/23 21:00 76 15 119/58 L 96 06/23/23 20:31 84 18 134/58 L 97 06/23/23 19:55 79 16 137/82 98 06/23/23 18:37 84 15 135/76 93 06/23/23 18:35 85 18 96 06/23/23 18:30 77 24 96 06/23/23 18:00 66 19 95 06/23/23 17:30 83 15 95 06/23/23 17:24 91 H 06/23/23 17:23 89 20 95 06/23/23 17:21 89 19 130/64 97 06/23/23 15:51 36.7 C 64 20 175/83 H 97 O2 Del Method 06/24/23 09:42 Room Air 06/24/23 09:35 Room Air 06/24/23 08:40 06/24/23 08:40 06/24/23 08:00 06/24/23 07:38 06/24/23 06:01 06/24/23 06:01 06/24/23 06:00 06/24/23 04:04 06/24/23 02:00 Room Air 06/24/23 01:56 Room Air 06/24/23 00:00 Room Air 02/13/24 23:00 Room Air 06/23/23 23:00 Room Air 06/23/23 23:00 Room Air 06/23/23 21:50 06/23/23 21:00 Room Air 06/23/23 20:31 Room Air 06/23/23 19:55 Room Air 06/23/23 18:37 06/23/23 18:35 Room Air 06/23/23 18:30 06/23/23 18:00 06/23/23 17:30 06/23/23 17:24 06/23/23 17:23 06/23/23 17:21 06/23/23 15:51 Room Air Recovery Score Activity: Moves 4 extremities Respiration: Deep Breath/Cough Circulation: +/-20% PreAnes Value Consciousness: Fully Awake Oxygen Saturation: > 92% On Room Air Discharge Sedation Level of Care: Phase I Post Sedation Plan On clinical assessment, the patient appears to have tolerated the sedation without complications. Patient is recovering as anticipated. Patient will continue to be monitored by nursing and may be discharged when sedation discharge criteria are met per below protocol. Upon Completions of procedure up to 15 minutes continue every 5 minute vital signs and the P.A.R. score; then discharge to a Phase I or Fast Track to Phase II per the following guidelines: * Discharge Patient to appropriate Phase II area if PAR is 8 or greater or return to pre- procedure baseline. The post - procedure orders will be as directed. * If PAR score is less than 8 or not return to pre-procedure baseline then patient will follow Phase I monitoring till PAR is reached for Phase II. The Phase I may be done in procedure room or may call to secure a Phase I area. * If naloxone or flumazenil are used for reversal, hold in Phase I for continued monitoring from when last reversal dose was given for a minimum of 60 minutes or longer pending the nurse and/or physician discretion of patient condition before discharge to Phase II. Please call the Sedation Physician to re-evaluate and complete post-note for discharge to Phase II area. Do NOT discharge from procedure sedation or Phase 1 until post- sedation evaluation note is complete by procedure /sedation MD Sedation Discharge Instructions to be given to the patient at discharge to home.
--- NOTE | 2023-06-24 10:38 | Cardiac Catheterization ---
Cardiac Cath Procedure Brief Procedure Date June 24, 2023 Pre-Procedure Diagnosis Pre-Procedure Diagnosis: Cardiomyopathy AUC Score AUC Score: 7 Post-Procedure Diagnosis Post-Procedure Diagnosis: Normal Coronary Arteries Procedure(s) Performed Procedure(s) Performed: Coronary Angiography and Left Heart Cath Frit Mixer Radames Lewis MD Grievance Manager(s) Mary Mireles Estimated Blood Loss Estimated Blood Loss: <15cc Medication(s) Medication(s): Fentanyl (12.5 mcg IV), Heparin (5000 units IV), Lidocaine 1% (Local infiltration access site), Nicardipine (250 mcg intra-arterial after arterial sheath insertion) and Versed (1 mg IV) Preliminary Findings Impression: Large-caliber normal coronaries, left dominant anatomy Frequent ventricular ectopy, bigeminy trigeminy Normal left end-diastolic pressure Recommendations Recommendations: Medical Therapy and/or Counseling Specimens Specimens: None Fluids (cc crystalloids) Fluids (cc crystalloids): 50 Anesthesia Start time: 1008, stop time: 1026 Procedural Complication(s) None Disposition Biological Photographer Holding/Recovery
--- NOTE | 2023-06-24 10:43 | Cardiac Catheterization ---
Cardiac Cath Procedure Full Procedure Date June 24, 2023 Pre-Procedure Diagnosis Pre-Procedure Diagnosis: Cardiomyopathy AUC Score AUC Score: 7 Post-Procedure Diagnosis Post-Procedure Diagnosis: Normal Coronary Arteries Procedure(s) Performed Procedure(s) Performed: Coronary Angiography and Left Heart Cath Pcts Radames Lewis MD [employer](s) Mary Mireles Estimated Blood Loss Estimated Blood Loss: <15cc Medication(s) Medication(s): Fentanyl (12.5 mcg IV), Heparin (5000 units IV), Lidocaine 1% (Local infiltration access site), Nicardipine (250 mcg intra-arterial after arterial sheath insertion) and Versed (1 mg IV) Summary of Findings Impression: Large-caliber normal coronaries, left dominant anatomy Frequent ventricular ectopy, bigeminy trigeminy Normal left end-diastolic pressure Procedure: Left heart catheterization, coronary angiography via right radial access Catheters: 6 Welsh long glide sheath, 5 Welsh Dolores, 5 Welsh straight pigtail Complications: None Hemodynamics Rest Ao:: 126/74/94 Final Ao: 117/65/80 LV: 112/1/9 Recommendations Recommendations: Medical Therapy and/or Counseling Specimens Specimens: None Radiation Exposure (mGy) 696 Contrast (mls) 60 Fluids (cc crystalloids) Fluids (cc crystalloids): 50 Anesthesia Start time: 1008, stop time: 1026 Procedural Complication(s) None Disposition [employer]/Recovery I attest to the content of the Intraoperative Record and any orders documented therein. Any exceptions are noted below. ACC Data: [employer] Cardiac Status Clinical evaluation leading to the procedure CAD Presenation: No Sxs, No angina Anginal Classification: No Symptoms Heart Failure: NYHA Class: CCS I Cardiogenic Shock within 24 Hours: No Cardiac Arrest within 24 Hours: No Imaging Studies Past 6 Months: Yes Stress Studies Past 6 Months: No Standard Exercise Test: No Stress Echocardiogram: No Stress Testing w/SPECT MPI: No Cardiac CTA: No Coronary Anatomy Dominant: Left Left Main (% Stenosis): Normal (Very short) LAD (% Stenosis): Normal (Type III) D1 (% Stenosis): Normal D2 (% Stenosis): Normal Circumflex (% Stenosis): Normal (Dominant) OM1 (% Stenosis): Normal L PL1 (% Stenosis): Normal L PDA (% Stenosis): Normal RCA (% Stenosis): Normal (Nondominant) Ramus (% Stenosis): Normal (Moderately large long vessel) Left Ventricular Angiography EF (%): N/A Diagnostic Physicians Name: Radames Lewis MD Status: Urgent Closure Device Percutaneous Entry Location: Radial Closure Device: Radial Band Recommendations: Medical Therapy and/or Counseling
[2023-06-24 11:40] VITALS: RESP 18
[2023-06-24] MEDS: SODIUM CHLORIDE 0.9% 1,000 ML IV SCH (12:36)
--- NOTE | 2023-06-24 12:43 | Communication Note ---
Date of Service: June 24, 2023 Patient seen both pre and postcardiac catheterization. Patient tolerated procedure well Large-caliber left dominant normal coronary anatomy Right wrist access healing Impression: 1.Nonischemic cardiomyopathy: Lab work ordered to assess for further possible etiologies. Goal will be to achieve guideline directed optimal therapies. Patient did not tolerate initial attempt at treatment possibly due to dosing. Medications adjusted at lower initial start levels with possibility of upward titration. 2. Frequent ventricular ectopy, bigeminy trigeminy. Maintain telemetry in hospital. Continue heart failure indicated beta-angelique
[2023-06-24 13:44] LABS: Thyroid Stimulating Hormone 0.876 uIu/ml (0.300-4.500)
--- NOTE | 2023-06-25 05:21 | Electrocardiogram Report ---
Test Reason : Blood Pressure : / mmHG Vent. Rate : 094 BPM Atrial Rate : 094 BPM P-R Int : 168 ms QRS Dur : 102 ms QT Int : 384 ms P-R-T Axes : 062 060 083 degrees QTc Int : 480 ms Sinus rhythm with Premature atrial complexes and Premature ventricular complexes Prolonged QT Abnormal ECG When compared with ECG of 14-SEP-2022 09:58, No significant change Confirmed by Yvan Norton ([id number]) on 06/25/2023 5:20:45 AM Referred By: Confirmed By:Yvan Norton
--- NOTE | 2023-06-25 05:48 | Electrocardiogram Report ---
Test Reason : Blood Pressure : / mmHG Vent. Rate : 075 BPM Atrial Rate : 046 BPM P-R Int : 160 ms QRS Dur : 108 ms QT Int : 410 ms P-R-T Axes : 042 069 093 degrees QTc Int : 457 ms Sinus bradycardia with marked sinus arrhythmia with frequent Premature ventricular complexes Nonspecific T wave abnormality Abnormal ECG When compared with ECG of 23-JUN-2023 16:01, No significant change Confirmed by Yvan Norton ([id number]) on 06/25/2023 5:47:32 AM Referred By: REFERRED SELF Confirmed By:Yvan Norton
[2023-06-25 07:00] LABS: Hematocrit (blood only) 41.2 % (42.0-52.0); Hemoglobin 13.9 g/dl (14.0-18.0); Mean Corpuscular Hemoglobin 28.5 pg (25.0-34.0); Mean Corpuscular Hgb Conc 33.7 g/dL (32.0-36.0); Mean Corpuscular Volume 84.4 fL (80.0-100.0); Mean Platelet Volume 10.6 fL (9.4-12.4); Platelet Count 260 K/uL (130-400); RDW Coefficient of Variation 12.4 % (11.5-14.5); Red Blood Count 4.88 M/uL (4.70-6.10); White Blood Count 7.04 K/ul (4.8-10.8)
[2023-06-25 07:44] LABS: Calcium 9.6 mg/dl (8.6-10.3); Potassium 4.2 mmol/L (3.5-5.1)
[2023-06-25 07:49] LABS: BUN Creatinine Ratio 14.8 (10-20); Creatinine Clr Calc Pharmacy 130.2 ml/min; Est GFR (African American) 118.6 ml/min; Est GFR (Non-African American) 102.3 ml/min
[2023-06-25 07:55] LABS: Ferritin 99.3 ng/ml (8-388)
[2023-06-25] MEDS: METOPROLOL SUCC 25MG EXT REL TAB PO SCH ×2 (08:30→09:33)
[2023-06-25] MEDS: lisinopril 10 MG TAB PO SCH (08:31)
[2023-06-25] MEDS: SPIRONOLACTONE 12.5 MG TAB PO SCH (08:31)
[2023-06-25 08:34] LABS: Folate (Folic Acid),Ser orPlas 13.95 ng/ml (>5.38)
--- NOTE | 2023-06-25 09:27 | Cardiology Progress Note ---
Date of Service June 25, 2023 Assessment & Plan (1) Nonischemic cardiomyopathy: (2) Systolic congestive heart failure: Plan: Minimal symptoms class I -II function (3) Frequent PVCs: (4) Abnormal echocardiogram: Plan Systolic congestive heart failure. NYHA Class I-II. LVEF reported as 20 to 24% (echo pending this admission). Narrow QRS duration. Patient maintaining sinus rhythm with frequent PVCs and nocturnal bradycardia (untreated obstructive sleep apnea). Volume status: Normovolemic. 1. Nonischemic cardiomyopathy question idiopathic: Class I to function capacity by patient description though with recent increase in exertional dyspnea. Cardiac catheterization without coronary artery disease Patient begun on GDMT. Dose was reduced on admission due to recent intolerance and relative blood pressure and heart rate concerns. Ventricular ectopy present but improving with beta-angelique therapy. Will increase metoprolol succinate to 50 mg every morning Medications adjusted with room to titrate beta-angelique further. Discussed in detail with patient. CHF instruction packet to be provided Resume furosemide on discharge. Renal function tolerated contrast load without difficulty Will require medications as prescribed for optimal effect and likelihood of return to improve function. Restricted activity level no strenuous activity 6-weeks Outpatient cardiology follow-up Admission and Anticipated Discharge Date Admission Date: June 23, 2023 Subjective Patient seen examined, chart, medications, telemetry reviewed. No patient complaints. No chest pains or worsening shortness of breath. Right radial access site healing well, no bleeding. Telemetry with frequent ventricular ectopy and couplets but no sustained arrhythmias, no bradycardia Review of Systems Review of Systems: All systems reviewed & are unremarkable except as noted in Subjective Physical Exam Constitutional: WD/WN, vitals as above no acute distress Eyes: PERRL, conjunctivae normal, anicteric sclerae ENMT: external ear and nose normal, oropharynx normal Neck: trachea midline, no thyromegaly Respiratory: normal respiratory effort, lungs clear to auscultation Cardiovascular: Rate/Rhythm: regular rate and regular rhythm Heart Sounds: normal S1 and normal S2 Vessels: radial pulses present (Healing well ); no JVD Extremities: no edema Results & Data Vital Signs (Past 12 Hours) Vital Signs Temp Pulse Pulse Resp BP Pulse Ox O2 Del Method 06/25/23 07:55 36.6 C 84 18 147/64 H 96 Room Air 06/25/23 02:55 36.5 C 60 18 100/64 97 Room Air 06/24/23 23:13 36.6 C 75 18 105/60 95 Room Air 06/24/23 22:00 79 Laboratory Results Laboratory Results - last 24 hr 06/24/23 06/25/23 12:41 06:03 WBC 7.04 RBC 4.88 Hgb 13.9 L Hct 41.2 L MCV 84.4 MCH 28.5 MCHC 33.7 RDW Std Deviation 38.0 RDW Coeff of Bridget 12.4 Plt Count 260 MPV 10.6 Sodium 143 Potassium 4.2 Chloride 106 Carbon Dioxide 32 Anion Gap 5 BUN 13 Creatinine 0.88 Est Cr Clr Drug Dosing 130.2 Est GFR ( Amer) 118.6 Est GFR (Non-Af Amer) 102.3 BUN/Creatinine Ratio 14.8 Glucose 86 Calcium 9.6 Iron 132 105 TIBC 273 270 Unsaturated IBC 141 L 165 Transferrin % Sat 48 39 Ferritin 99.3 B-Natriuretic Peptide 196 H Total Protein (PEP) Pending Albumin (PEP) Pending Ysrvt-5-Czcjenalh Pending Jchsr-8-Tvfjpxqsr Pending Mlti-1-Arzxhjjq Pending Nebe-3-Pzpphvjj Pending Gamma Globulins Pending Monoclonal Peak 3 Pending Ser Monoclonl Protein Pending Ser Monoclonal Prot 2 Pending PEP Interpretation Pending Vitamin B12 489 Folate 13.95 TSH 0.876 ELIAS Screen Pending HIV-1 RNA copies/mL Pending HIV-1 RNA logcopies/mL Pending
[2023-06-25] MEDS ORDERED: METOPROLOL SUCC 25MG EXT REL TAB PO ONE (09:28)
[2023-06-25] MEDS: METOPROLOL SUCC 50MG EXT REL TAB PO SCH (10:02)
[2023-06-25 11:28] VITALS: BP 122/74; PULSE 52; TEMP 98.2; O2SAT 95
--- NOTE | 2023-06-25 11:39 | Discharge Summary ---
Discharge Summary Date of Service June 25, 2023 Notes For Next Care Provider Medication Changes From Visit -Spironolactone 12.5mg daily -Lisinopril 10mg daily -Furosemide 20mg daily -Metoprolol XL 50mg qam Admission HPI Per Admitting Provider This is a 48yo M with PMH of COPD, mood disorder, GENARO generally noncompliant with CPAP who was sent from [facility] for abnormal EKG and 2D echo in the past week. No records were sent but patient reportedly had EF reduced at 22%. Recently presented to [facility] due to shortness of breath laying flat and underwent echo within the last week, patient thinks. Today, he states he is able to lay down flat but has difficulty breathing when on right side and has intermittent cramping chest pains when in that position. Otherwise denies any chest pain or SOB with exertion. Denies any lower extremity swelling or PND. Denies weight gain. No recent illness, no F/C, lightheadedness, wheezing, N/V, abdominal pain, dysuria, diarrhea or constipation. Endorses remote use of cocaine when he was a teenager but has been incarcerated for most of his life. Endorses former use of tobacco, marijuana, K2 and Suboxone at various points while at [facility] but nothing recently. Denies any knowledge of heart condition in the past besides admission in September 2022 for PVCs when he was discharged from ED. No known family history of HD, CHF or arrhythmias. Admission Exam Per Admitting Provider General Appearance: WD/WN, vitals as above, NAD, sitting up in bed, pleasant, conversing easily Head: normocephalic, atraumatic Eyes: normal inspection, PERRL, conjunctivae normal, anicteric sclerae ENT: external ear and nose normal, oropharynx normal Neck: normal visual inspection, trachea midline, no thyromegaly Respiratory: normal respiratory effort, lungs clear to auscultation, no wheeze, rales, rhonchi. No accessory muscle use Cardiovascular: regular rate with ectopy, regular rhythm, normal peripheral pulses, no BLE edema. Vessels: no JVD Chest: normal inspection of chest Abdomen/GI: normal bowel sounds, soft, nontender, no hepatosplenomegaly Extremities/Musculoskeletal: no cyanosis or clubbing, extremities motor strength 5/5 Neurologic: PERRL, EOMI, accommodation nl, no face palsy, no dysarthria, CN's II-XI intact bilaterally and moves all extremities Psychiatric: A+Ox3, euthymic affect Skin: no rashes, normal color, warm/dry Principal Dx & Hospital Course #1 = Principal Diagnosis (1) Abnormal echocardiogram: (2) COPD (chronic obstructive pulmonary disease): (3) BPH (benign prostatic hyperplasia): (4) Depressive disorder: (5) Panic disorder: Plan Mr. Cheatham is a 48yo gentleman with PMH of COPD, mood disorder, GENARO generally noncompliant with CPAP who was sent from [facility] for abnormal EKG and 2D echo in the past week. Patient states that he felt nasal congestion. The physician at the [facility] did a chest x ray and told him that his heart looked "too big" and his EKG was "not normal." He states he doesn't have orthopnea, chest pain, SOB/[place], or edema. He denies family history of heart issues/sudden cardiac . He denies any recent illness. ECHO with EF of 15-20% [facility] with clean coronaries #New onset Heart Failure with reduced ejection fraction #Nonischemic cardiomyopathy #Frequent Ventricular Ectopy Phone sign out to ED was that patient reported to [facility] a week ago with complaints of congestion and echo showed severely reduced EF at 22% EKG today with sinus rhythm with marked sinus arrhythmia and PACs that have previously been noted, aberrant conduction now present Chest x-ray with stable cardiomediastinal silhouette, lungs are clear, no acute chest disease Discussed with [facility] staff, who are faxing over med list and echo report ECHO 06/24 15-20%, severe global hypokinesis of LV, mildly dlated LA Lipid panel: LDL 104 [facility]: normal coronaries Denies any longstanding history of substance abuse--endorses occasional cocacine/marijuana, but nothing "consistent" or habitual GDMT: -Continue Spironolactone 12.5mg daily -Continue Lisinopril 10mg daily -Continue Furosemide 20mg daily -Continue Metoprolol XL 50mg qam Further autoimmune, HIV labs sent for eval #Chronic normocytic anemia -B12, folate, iron studies in am #COPD Chronic, stable. No longer smoking. Continue home inhalers #BPH Chronic, stable. Continue tamsulosin #Panic Disorder Chronic, stable. Continue buspirone Discharge Exam Constitutional WD/WN, vitals as above Respiratory normal respiratory effort, lungs clear to auscultation Cardiovascular RRR, no murmur, no edema Gastrointestinal (Abdomen) normal bowel sounds, soft, nontender, no hepatosplenomegaly Musculoskeletal no cyanosis or clubbing, extremities motor strength 5/5 Updated Medication List Medication Instructions Recorded Confirmed Type fluticasone 500 mcg-salmeterol 50 1 inh inhalation BID 03/11/21 06/23/23 History mcg/dose blistr powdr for inhalation ([facility] [employer]) omeprazole 40 mg capsule,delayed 40 mg PO QAM 03/11/21 06/23/23 History release albuterol sulfate 90 mcg/actuation 2 puff inhalation QID PRN 06/23/23 06/23/23 History aerosol inhaler Shortness Of Breath Or Wheezing aspirin 81 mg tablet,delayed 81 mg PO DAILY 06/23/23 06/23/23 History release cetirizine 10 mg tablet (Zyrtec) 10 mg PO DAILY 06/23/23 06/23/23 History furosemide 20 mg tablet (Lasix) 20 mg PO QAM 06/23/23 06/23/23 History gabapentin 300 mg capsule 300 mg PO TID 06/23/23 06/23/23 History lisinopril 10 mg tablet 10 mg PO DAILY #30 tabs 06/25/23 Rx metoprolol succinate 50 mg 50 mg PO QAM #30 tabs 06/25/23 Rx tablet,extended release 24 hr spironolactone 25 mg tablet 12.5 mg (1/2 x 25 mg) PO DAILY #30 06/25/23 Rx tabs Hospital Stay Data Consultations 06/23/23 18:20 ED Decision to Admit Stat 06/23/23 19:24 HIM [Consult Health Information Management] Stat 06/24/23 07:00 Consult Cardiology Routine Procedures Performed Operation Date: 06/24/23 09:30 Actual Procedures p Cineradiography w/Routine Exam - Radames Lewis MD p Cath, Left with Cors and Vent - Radames Lewis MD Diagnostic Imagining Performed 06/24/23 09:55 CL Cath Imgs for PACS use only Stat Pending Results Patient Have Any Pending Studies at Discharge: Yes (Autoimmune/ELIAS panel, SPEP ) Discharge Instructions Given to Patient (Per Discharging Provider) You were admitted for evaluation of abnormal echocardiogram You were noted to have new onset heart failure with reduced ejection fraction. Your ejection fraction was 15-20% Your coronary arteries were normal. Your medications were adjusted to help optimize your heart function, compliance with this regimen: -Lasix (furosemide) 20mg in the morning -Lisinopril 10mg daily -Spironolactone 12.5mg daily -Metoprolol XL 50mg daily Total Time Total Time Spent Total Time Spent (In Minutes): 55
[2023-06-26 10:48] LABS: Anti Nuclear Antibody Screen NEGATIVE (NEGATIVE); HIV 1 RNA PCR Copies/ML NOT DETECTED copies/mL (NOT DETECTED); HIV-1 RNA Log Copies/mL NOT DETECTED (NOT DETECTED)
== END 2023-06-25 12:33 ==
LOC: ED 15:46 → SUATTDRO 18:52 → INTOOBSV 18:52 → EDINP 18:59 → 2E 06-24 11:36
DX: Z79.899 Other long term (current) drug therapy; R94.31 Abnormal electrocardiogram [ECG] [EKG]; Z91.199 Patient's noncompliance with other medical treatment and regimen due to unspecified reason; I42.8 Other cardiomyopathies; J45.909 Unspecified asthma, uncomplicated; D64.9 Anemia, unspecified; I49.3 Ventricular premature depolarization; Z99.89 Dependence on other enabling machines and devices; Z79.82 Long term (current) use of aspirin; J44.9 Chronic obstructive pulmonary disease, unspecified; I50.22 Chronic systolic (congestive) heart failure; Z87.891 Personal history of nicotine dependence; R00.1 Bradycardia, unspecified; N40.0 Benign prostatic hyperplasia without lower urinary tract symptoms

== ENCOUNTER 2023-10-16 08:07 | Inpatient (IN) ==
--- NOTE | 2023-10-16 08:35 | XRay Report ---
SINGLE VIEW CHEST CLINICAL HISTORY: Atypical chest pain. FINDINGS: 2 AP, portable, upright chest radiographs are compared to study dated 08/03/2023. The heart is enlarged. The pulmonary vasculature is noncongested. Chronic interstitial thickening is previous. There is mild bibasilar scarring/atelectasis. The lungs and pleural spaces are otherwise clear. No pn eumothorax is seen. The bony thorax is grossly intact. IMPRESSION: Cardiomegaly with no active disease in the chest. ACT 112: Negative or not required by law. Electronically signed by: Edy Perez M.D. 10/16/2023 8:34 AM
[2023-10-16 08:36] LABS: Basophils # (auto) 0.04 K/uL (0.00-0.20); Basophils % (auto) 0.6 %; Eosinophils # (auto) 0.07 K/uL (0.00-0.50); Hematocrit (blood only) 42.4 % (42.0-52.0); Hemoglobin 13.9 g/dl (14.0-18.0); Immature Granulocytes # (auto) 0.02 K/uL (0.01-0.20); Immature Granulocytes % (auto) 0.3 %; Lymphocytes # (auto) 1.08 K/uL (1.20-3.40); Lymphocytes % (auto) 15.2 %; Mean Corpuscular Hemoglobin 27.9 pg (25.0-34.0); Mean Corpuscular Hgb Conc 32.8 g/dL (32.0-36.0); Mean Platelet Volume 10.2 fL (9.4-12.4); Monocytes # (auto) 0.38 K/uL (0.11-0.59); Monocytes % (auto) 5.3 %; Neutrophils # (auto) 5.53 K/uL (1.40-6.50); Neutrophils % (auto) 77.6 %; Platelet Count 241 K/uL (130-400); RDW Standard Deviation 37.1 fL (36.4-46.3); Red Blood Count 4.99 M/uL (4.70-6.10); White Blood Count 7.12 K/ul (4.8-10.8)
--- NOTE | 2023-10-16 08:50 | Emergency Department Note ---
Impression & Plan Chest pain, Frequent PVCs, Bradycardia, Abnormal EKG, Nonischemic cardiomyopathy ED Provider Note NAME: MONICA [id number] SHERIF AGE: 48 SEX: M : 1975 ARRIVES VIA: Ambulance INFORMANT: Patient ED PROVIDER(S): Wil Adams DO CHIEF COMPLAINT: dizzy, lightheaded, CP HPI: Patient is a 48-year-old male who presents to the ER with a past medical history of nonischemic cardiomyopathy with an EF of 15 to 20% for chest pain dizziness and lightheadedness. Patient also admits to shortness of breath. Everything started within the past 24 hours. Denies any headache or change in vision. Chest pain is present for several seconds at a time and is sharp stabbing in nature. It takes his breath away. It resolves with breathing. Denies any belly pain, nausea, vomiting or diarrhea. No dysuria, urgency or frequency. Per report patient was brought in as a as he was very lethargic and having multiple PVCs and has an abnormal EKG combination with the lightheaded dizziness and chest pain. Patient himself denies any send definitely on drainage. He notes that someone from the present told him that he declined an ICD/pacemaker at some point but he is unaware of this occurring. He denies any illicit drug use recently. ADDITIONAL HISTORY OBTAINED: Per HPI Chronic Medical/Social Conditions Affecting Care: Per HPI PAST MEDICAL HISTORY:See Below PAST SURGICAL HISTORY:See Below FAMILY HISTORY:See Below SOCIAL HISTORY:See Below HOME MEDICATIONS:See Below ALLERGIES:See Below VITALS:See Below PHYSICAL EXAMINATION: GENERAL: Sitting up in bed, alert, well appearing, well nourished, no distress, non-toxic EYE EXAM: normal conjunctiva. OROPHARYNX: no exudate, no erythema, lips, buccal mucosa, and tongue normal and mucous membranes are moist NECK: supple, no nuchal rigidity, no adenopathy, non-tender LUNGS: Clear to auscultation. Normal chest wall mechanics HEART: no murmurs, S1 normal and S2 normal ABDOMEN: abdomen soft, non-tender, normo-active bowel sounds, no masses, no rebound or guarding. UPPER EXTREMITIES: upper extremities are grossly normal. LOWER EXTREMITIES: No pitting edema. Calves are equal bilaterally NEURO EXAM: Normal sensorium, cranial nerves II-XII grossly intact, normal speech, no gross weakness of arms, no gross weakness of legs. MEDICAL DECISION MAKING: Patient is a 48-year-old male who presents ER for the above-stated complaint. IV was established blood work was obtained. [facility] E[facility] performed earlier today which showed a sinus rhythm with multiple PVCs. Labs show no significant leukocytosis or anemia. BMP along with LFTs bilirubin was unremarkable. Mag was normal. Troponin was negative. Lipase normal. Chest x-ray was unremarkable. EKG was fairly abnormal. External records reviewed as described above. Patient was discussed with the hospitalist for further evaluation management treatment in light of his poor EF, lightheadedness and PVCs Consults/Care Managements Discussions: Per [facility] Triage Nursing notes reviewed. Limited review of prior medical records performed Vital Signs: reviewed and remarkable for HTN Differential diagnosis: Cardiac ischemia, aortic dissection, pulmonary embolism, pneumothorax, pneumonia, pericarditis, myocarditis, esophageal rupture, GERD, cholecystitis, pancreatitis, musculoskeletal, as well as other pathologies. ER treatment provided: See below Diagnostics interpreted by me include EKG and cardiac monitoring as listed below: -Cardiac Monitoring: An order was placed for continuous cardiac monitoring. The monitor shows a rate of 80 with sinus rhythm. -ECG: Sinus rhythm rate of 85 with multiple PVCs Normal axis QTc 471 -Laboratory studies:Interpreted by me as stated above in MDM and shown below. Imaging studies: Xrays: As interpreted by me: Portable AP upright 1 view of the chest shows no focal infiltrate CTs show: none Procedures:none Critical Care: None Past Med/Surg History Problem List (Updated 10/16/23 @ 15:29 by Wil Adams DO) Chest pain (Acute) Acute on chronic systolic heart failure Bradycardia (Acute) Nonischemic cardiomyopathy (Acute) Abnormal EKG (Acute) Frequent PVCs (Acute) Systolic congestive heart failure BPH (benign prostatic hyperplasia) H/O umbilical hernia repair (06/26/21) Robotic Laparoscopic Umbilical and Ventral Hernia Repair- Reginald Irwin DO, TORITO 06/26/2021 H/O ventral hernia repair (06/26/21) Robotic Laparoscopic Umbilical and Ventral Hernia Repair- Reginald Irwin DO, FACS 06/26/2021 Persistent asthma Per records Abdominal hernia Obesity (BMI 30-39.9) Supraumbilical hernia Incarcerated umbilical hernia GERD (gastroesophageal reflux disease) COPD (chronic obstructive pulmonary disease) inhaler daily/prn Panic disorder Depressive disorder Medical History Bradycardia Abnormal echocardiogram Bladder pain Nocturia Lower urinary tract symptoms GENARO (obstructive sleep apnea) Family History Other Asthma COPD (chronic obstructive pulmonary disease) Social History Smoking Status: Former smoker Do You Dip or Chew Tobacco: No; Hx Alcohol Use: No Hx Substance Use: Yes Preferred Language: Arabic Communication Ability: Effective Visual Impairment: No Limitations Funeral Greeter Required: No Beliefs That Will Affect Care: None marital status: Single Current Living Situation: Other Current Living Situation Comment: [facility] Feels Safe at Home: Yes Assistive Devices: None Allergies Allergies Allergy/AdvReac Type Severity Reaction Status Date / Time No Known Allergies Allergy Verified 10/16/23 10:07 Home Meds Home Medications Medication Instructions Recorded Confirmed omeprazole 40 mg capsule,delayed 40 mg PO QAM 03/11/21 10/16/23 release albuterol sulfate 90 mcg/actuation 2 puff inhalation QID PRN 06/23/23 10/16/23 aerosol inhaler Shortness Of Breath Or Wheezing aspirin 81 mg tablet,delayed 81 mg PO DAILY 06/23/23 10/16/23 release furosemide 20 mg tablet (Lasix) 20 mg PO QAM 06/23/23 10/16/23 gabapentin 300 mg capsule 300 mg PO TID 06/23/23 10/16/23 empagliflozin 10 mg tablet 10 mg PO DAILY 10/07/23 10/16/23 (Jardiance) spironolactone 25 mg tablet 12.5 mg PO DAILY 10/07/23 10/16/23 Previous Rx's Medication Instructions Recorded metoprolol succinate 50 mg 50 mg PO QAM #30 tabs 06/25/23 tablet,extended release 24 hr sacubitril 49 mg-valsartan 51 mg 1 tab PO BID #180 tabs 10/07/23 tablet (Entresto) Results & Data (ED) Vital Signs Vital Signs - 24 hr 10/16/23 08:24 10/16/23 08:24 10/16/23 08:24 Temperature 37.0 C Temperature Source Oral Pulse Rate 46 L 49 L Respiratory Rate 14 15 Respiratory Depth Normal Blood Pressure 156/74 H Blood Pressure Mean 101 Pulse Oximetry 97 97 97 Oxygen Delivery Method Room Air Room Air Room Air Oxygen Flow Rate 0 Sepsis Recent Fever Within 48 Hours No Sepsis New/Unexplained Change in Mental Status N/A Sepsis Action Taken by Nursing No Action Required 10/16/23 08:25 10/16/23 09:12 10/16/23 09:30 Temperature Temperature Source Pulse Rate 72 82 74 Respiratory Rate 13 13 Respiratory Depth Blood Pressure 110/67 127/75 Blood Pressure Mean 81 81 Pulse Oximetry 95 96 Oxygen Delivery Method Oxygen Flow Rate Sepsis Recent Fever Within 48 Hours Sepsis New/Unexplained Change in Mental Status Sepsis Action Taken by Nursing 10/16/23 10:30 Temperature Temperature Source Pulse Rate 81 Respiratory Rate 21 Respiratory Depth Blood Pressure 113/83 Blood Pressure Mean 93 Pulse Oximetry 98 Oxygen Delivery Method Room Air Oxygen Flow Rate Sepsis Recent Fever Within 48 Hours Sepsis New/Unexplained Change in Mental Status Sepsis Action Taken by Nursing Laboratory Data 10/16/23 08:20 10/16/23 08:20 Lab Results 10/16/23 Range/Units 08:20 WBC 7.12 (4.8-10.8) K/ul RBC 4.99 (4.70-6.10) M/uL Hgb 13.9 L (14.0-18.0) g/dl Hct 42.4 (42.0-52.0) % MCV 85.0 (80.0-100.0) fL MCH 27.9 (25.0-34.0) pg MCHC 32.8 (32.0-36.0) g/dL RDW Std Deviation 37.1 (36.4-46.3) fL RDW Coeff of Bridget 12.0 (11.5-14.5) % Plt Count 241 (130-400) K/uL MPV 10.2 (9.4-12.4) fL Immature Gran % (Auto) 0.3 % Neut % (Auto) 77.6 % Lymph % (Auto) 15.2 % Lander % (Auto) 5.3 % Eos % (Auto) 1.0 % Baso % (Auto) 0.6 % Neut # (Auto) 5.53 (1.40-6.50) K/uL Lymph # (Auto) 1.08 L (1.20-3.40) K/uL Lander # (Auto) 0.38 (0.11-0.59) K/uL Eos # (Auto) 0.07 (0.00-0.50) K/uL Baso # (Auto) 0.04 (0.00-0.20) K/uL Immature Gran # (Auto) 0.02 (0.01-0.20) K/uL Sodium 140 (136-145) mmol/L Potassium 4.1 (3.5-5.1) mmol/L Chloride 104 (98-107) mmol/L Carbon Dioxide 29 (21-32) mmol/L Anion Gap 7 (3-11) BUN 14 (6-23) mg/dl Creatinine 0.86 (0.6-1.4) mg/dl Est Cr Clr Drug Dosing 133.9 ml/min Est GFR ( Amer) 119.7 ml/min Est GFR (Non-Af Amer) 103.3 ml/min BUN/Creatinine Ratio 16.3 (10-20) Glucose 110 H (70-99(Fasting)) mg/dl Calcium 9.9 (8.6-10.3) mg/dl Total Bilirubin 0.7 (0.2-1.0) mg/dl AST 12 L (13-39) U/L ALT 9 (7-52) U/L Alkaline Phosphatase 71 (34-104) U/L Troponin I High Sens 8.8 (0-20) pg/ml Total Protein 7.3 (6.0-8.3) gm/dl Albumin 4.5 (3.4-5.0) gm/dl Globulin 2.8 (2.5-4.0) gm/dl Albumin/Globulin Ratio 1.6 (0.9-2) Lipase 9 L (11-82) U/L Imaging Data Radiologist's Impression: Chest X-Ray 10/16/23 08:18 SINGLE VIEW CHEST CLINICAL HISTORY: Atypical chest pain. FINDINGS: 2 AP, portable, upright chest radiographs are compared to study dated 08/03/2023. The heart is enlarged. The pulmonary vasculature is noncongested. Chronic interstitial thickening is previous. There is mild bibasilar scarring/atelectasis. The lungs and pleural spaces are otherwise clear. No pneumothorax is seen. The bony thorax is grossly intact. IMPRESSION: Cardiomegaly with no active disease in the chest. ACT 112: Negative or not required by law. Electronically signed by: Edy Perez M.D. 10/16/2023 8:34 AM Discharge Plan Visit Data Chief Complaint: Cardiac Assessment ED Provider: Wil Adams Discharge Problem: Chest pain, Frequent PVCs, Bradycardia, Abnormal EKG, Nonischemic cardiomyopathy Patient Disposition: Admitted As Inpatient Discharge Instructions Interventions: ED Discharge Assessment Last Done: 10/16/23 14:19 Discharge Problem: Chest pain Qualifiers: Chest pain type: unspecified Qualified Code(s): R07.9 - Chest pain, unspecified
[2023-10-16 08:55] LABS: Albumin Globulin Ratio 1.6 (0.9-2); Albumin Level 4.5 gm/dl (3.4-5.0); BUN Creatinine Ratio 16.3 (10-20); Bilirubin,Total 0.7 mg/dl (0.2-1.0); Calcium 9.9 mg/dl (8.6-10.3); Creatinine Clr Calc Pharmacy 133.9 ml/min; Est GFR (African American) 119.7 ml/min; Est GFR (Non-African American) 103.3 ml/min; Globulin 2.8 gm/dl (2.5-4.0); Potassium 4.1 mmol/L (3.5-5.1); Total Protein 7.3 gm/dl (6.0-8.3)
[2023-10-16 09:00] LABS: Troponin I High Sensitivity 8.8 pg/ml (0-20)
--- NOTE | 2023-10-16 10:13 | History & Physical Report ---
Date of Service October 16, 2023 Assessment & Plan (1) Acute on chronic systolic heart failure: Plan: SOB and chest heaviness while in bed the evening of 10/14 Patient felt dizzy and nauseous when standing in the morning Patient is from [facility]; did not take his AM medications until late last night He also notes his he has been restricted housing the past few days; diet includes chips, soups, and some sausage Last echo on revealed LVEF at 15-20% with an elevated RVSP Repeat echocardiogram ordered, pending Daily weights Strict I and O monitoring Heart healthy, low-sodium diet (1800 mL fluid restriction) Will dose reduce metoprolol from 50-->25mg p.o. QAM Continue Lasix 20mg po daily Continue Entresto, Jardiance, spironolactone Appreciate cardiology consult A.m. CBC, BMP, mag (2) Bradycardia: Plan: EMS reported the patient's heart rate dropped into the 30 bpm range Patient notes dizziness with standing Orthostatic vitals ordered, pending Lyme ordered, pending Continuous telemetry monitoring Continue metoprolol, but hold if patient becomes bradycardic (3) Nonischemic cardiomyopathy: (4) Frequent PVCs: (5) COPD (chronic obstructive pulmonary disease): (6) GERD (gastroesophageal reflux disease): Plan [facility] Full code AHA, low-sodium diet (1800 mL fluid restriction) VTE PPx: Lovenox 40 mg SQ q24h History of Present Illness Chief Complaint: Cardiac assessment Primary Care Provider: [facility] Aj is a 48-year-old male with PMH of COPD, GERD, depression, asthma, umbilical hernia, BPH, systolic CHF, and non-ischemic cardiomyopathy. He presented from [facility] for acute onset of SOB that developed while lying in bed last night onset 10/14. Patient also notes he had intermittent chest "heaviness", located mainly on the left side. He believes it was associated with SOB. No radiation to the shoulder or jaw or down the arm. He rated the chest heaviness 4/10 at worst. Denies chest pain. The SOB was at rest, and he is unsure if it is worse when he was lying flat on his back; however, he reports that he was in restrictive housing, and could not elevate his head or body. Patient then woke up, and went to stand and felt like the room was spinning. He denies fainting; however, he felt like he was going to throw up at that time. No prior experiences like this one. He denies PMH of [place], CVA, syncope, or cardiac history. He denies any recent rashes or tick bites. No supplemental oxygen at the retirement. He does vape, and is a former tobacco cigarette smoker. He denies recent alcohol use, or recreational drug use. It should be noted that patient takes medication daily, but did not take his medications yesterday in the morning as they were unavailable; he took the medications he usually takes at 6 AM late at night. He then took his regular pills again today this morning. He does follow with [facility] since June 2023 after an abnormal echocardiogram showed LVEF 15-20%. In regard to diet, patient reports that he has been restricted housing for the last few days, and is therefore been having food like chips, soup, and similar sausage. Per EMS, HR dropped to 30 bpm briefly. Patient's vitals are stable at time of admission. ED course: ROS: Patient endorses SOB at rest, chest heaviness, dizziness/lightheadedness when standing, and nausea. Patient denies fever, chills, night sweats, headache, changes in vision, chest pain, orthopnea, cough, vomiting, diarrhea, change in urinary or bowel habits, or leg swelling. Allergies Allergy/AdvReac Type Severity Reaction Status Date / Time No Known Allergies Allergy Verified 10/16/23 10:07 Home Medications Medication Instructions Recorded Confirmed Type omeprazole 40 mg capsule,delayed 40 mg PO QAM 03/11/21 10/16/23 History release albuterol sulfate 90 mcg/actuation 2 puff inhalation QID PRN 06/23/23 10/16/23 History aerosol inhaler Shortness Of Breath Or Wheezing aspirin 81 mg tablet,delayed 81 mg PO DAILY 06/23/23 10/16/23 History release furosemide 20 mg tablet (Lasix) 20 mg PO QAM 06/23/23 10/16/23 History gabapentin 300 mg capsule 300 mg PO TID 06/23/23 10/16/23 History metoprolol succinate 50 mg 50 mg PO QAM #30 tabs 06/25/23 10/16/23 Rx tablet,extended release 24 hr empagliflozin 10 mg tablet 10 mg PO DAILY 05/29/24 06/07/24 History (Jardiance) sacubitril 49 mg-valsartan 51 mg 1 tab PO BID #180 tabs 10/07/23 10/16/23 Rx tablet (Entresto) spironolactone 25 mg tablet 12.5 mg PO DAILY 10/07/23 10/16/23 History Past Med/Surg History Problem List (Updated 10/16/23 @ 15:29 by Wil Adams DO) Chest pain (Acute) Acute on chronic systolic heart failure Bradycardia (Acute) Nonischemic cardiomyopathy (Acute) Abnormal EKG (Acute) Frequent PVCs (Acute) Systolic congestive heart failure BPH (benign prostatic hyperplasia) H/O umbilical hernia repair (06/26/21) Robotic Laparoscopic Umbilical and Ventral Hernia Repair- Reginald Irwin DO, FACS 06/26/2021 H/O ventral hernia repair (06/26/21) Robotic Laparoscopic Umbilical and Ventral Hernia Repair- Reginald Irwin DO, FACS 06/26/2021 Persistent asthma Per records Abdominal hernia Obesity (BMI 30-39.9) Supraumbilical hernia Incarcerated umbilical hernia GERD (gastroesophageal reflux disease) COPD (chronic obstructive pulmonary disease) inhaler daily/prn Panic disorder Depressive disorder Medical History Bradycardia Abnormal echocardiogram Bladder pain Nocturia Lower urinary tract symptoms GENARO (obstructive sleep apnea) Family History Other Asthma COPD (chronic obstructive pulmonary disease) Social History Smoking Status: Former smoker Tobacco Type: Cigarettes Cigarettes Per Day: 1 PPD; Do You Dip or Chew Tobacco: No; Hx Alcohol Use: No Hx Substance Use: Yes Last Used Substance: Unknown Preferred Language: Kittitian Communication Ability: Effective Visual Impairment: No Limitations Maintenance Parts Technician Required: No Beliefs That Will Affect Care: None marital status: Single Current Living Situation: Other Current Living Situation Comment: [facility] Feels Safe at Home: Yes Safety Concerns: Feels Safe At This Time Assistive Devices: Glasses Review of Systems Review of Systems: See HPI above Physical Exam Physical Exam: General: no acute distress; non-toxic appearing; well-nourished; cooperative; SpO2 95% on RA HEENT: normocephalic, atraumatic; no scleral icterus; PERRLA w/ EOMs intact; moist mucus membrane; vision and hearing grossly intact Neck: supple; no lymphadenopathy; trachea midline Skin: warm, dry without signs of tenting; no cyanosis; no rashes, bruising, lesions, or erythema noted CV: chest wall NTP; RRR; S1/S2 normal; no murmurs/rubs/gallops; pulses intact and symmetric at radial, DP, and PT Lungs: no acute respiratory distress; symmetrical chest wall expansion; clear breath sounds across all lung bennett w/o adventitious sounds; no wheezing ABD: Soft, NTP; BS present; no rebound/guarding; no distention MSK: no tics or fasciculations; no edema noted in the LEs b/l, nonerythematous Neuro: A&Ox3; normal mood and affect; fluent speech; no focal deficits; sen sation grossly intact in the LEs b/l Results & Data Results & Data Vital Signs (Past 12 Hours) Vital Signs Temp Pulse Resp BP Pulse Ox O2 Del Method O2 Flow Rate 10/16/23 09:12 82 13 110/67 95 10/16/23 08:25 72 10/16/23 08:24 49 L 15 97 Room Air 10/16/23 08:24 97 Room Air 0 10/16/23 08:24 37.0 C 46 L 14 156/74 H 97 Room Air ECG Additional Comments: ECG revealed accelerated junctional rhythm with frequent PVCs at 85 bpm; QTc 471 Code Status & VTE Plan Code Status Full code Supervising Physician Co-Signing Physician Notes Patient seen and examined, chart reviewed, case discussed with Alex Pleitez and I agree with the assessment and plan as above except as otherwise noted Labs and images reviewed 48-year-old male with history of nonischemic cardiomyopathy presents with progressive shortness of breath and difficulty breathing with chest heaviness while ambulating. He has had some salted meat/pepperoni recently. He had a past echo with an EF 15-20%, repeat echo is actually improved with EF 35 to 40% but with global hypokinesis. Frequent PVCs. Chest x-ray is without acute findings and no obvious edema, and no pulmonary vascular congestion. While he has had increased salt intake and shortness of breath he does not appear severely volume overloaded as nonhypoxic on room air. Pertinent symptoms are actually lightheadedness/dizziness.? Whether he is having some limiting o rthostasis. Will continue cautious diuresis and see how he responds, and attempt ambulatory trial tomorrow. If oxygenation is good but he is orthostatic then will dose reduce his antihypertensives. He has had bradycardia intermittently with a high PVC burden, metoprolol dose reduced for bradycardia although this may worsen his PVC burden. No signs of ACS. Continue to follow. PG Care Time/CCT Total # of Minutes Spent Total Time Spent with Patient: Total time spent is greater than 50% in coordination of care (as documented) at patient's floor/unit and/or counseling patient: Coding [place] [address] INT INP/OBS CARE 3/75MIN Patient Type Established History Comprehensive Exam Comprehensive Medical Decision Making High Complexity Diagnoses Acute on chronic systolic heart failure I50.23 Bradycardia R00.1 Nonischemic cardiomyopathy I42.8 Frequent PVCs I49.3 COPD (chronic obstructive pulmonary disease) J44.9 GERD (gastroesophageal reflux disease) K21.9
[2023-10-16] MEDS ORDERED: ALBUTEROL HFA 8 GM INHALER INH PRN (14:36)
[2023-10-16] MEDS ORDERED: ACETAMINOPHEN 325 MG TAB PO PRN (14:36)
[2023-10-16] MEDS: GABAPENTIN 300 MG CAP PO SCH (17:23)
--- NOTE | 2023-10-16 19:35 | Cardiology Consultation ---
Date of Consultation October 16, 2023 Assessment & Plan (1) Acute on chronic systolic heart failure: (2) Nonischemic cardiomyopathy: (3) Frequent PVCs: (4) Chest pain: (5) Dizziness: Plan ASSESSMENT/PLAN: 1. Acute on chronic heart failure with reduced EF: He does not appear h ypervolemic. When reviewing EMR, do not see that he has received Lasix as of yet although he reports having significant diuresis. Perhaps he was hypervolemic and has since subsided. Cannot exclude that perhaps his paroxysmal nocturnal dyspnea was related to the lack of CPAP that he usually wears but he was in the restrictive housing unit overnight leading up to his hospitalization. Continue Entresto which was recently titrated. Continue metoprolol succinate. LV systolic function seems to have improved. Continue spironolactone and SGLT2 inhibitor. 2. Nonischemic cardiomyopathy: LV systolic function has improved. Continue medical therapy and continue to titrate Entresto as able. Most recent heart rate was mildly bradycardic and was bradycardic initially. May not be able to further titrate beta-angeliuqe. 3. PVCs: May or may not be playing a role in his reduced LV systolic function. His primary drywall finishing foreman has mentioned outpatient Holter although no results were noted at the time of this note. Will defer to his primary drywall finishing foreman/assistant grocery store manager. If felt to be playing a role in reduced LV systolic function, more aggressive treatment of PVCs may be warranted. Continue beta-angelique for now. 4. Chest pain: No significant CAD noted on 2023 catheterization. May be related to heart failure/lack of CPAP/acute shortness of breath. 5. Dizziness: Recommend orthostatic vitals. Group Home guards state that they have been completed but results not known at the time of this note and have not been identified in his electronic health record. If found to be orthostatic, further titration of heart failure medications may not be possible and may have to reduce dosing. 6. Disposition: Dr. Childers is on-call on 10/16/2023 from 5 PM onward through the weekend. Please call him with any questions or concerns. Thank you for allowing me to participate in the care of your patient. Please call for any other questions or concerns. Sincerely, Kishore Norton M.D. History of Present Illness Reason for Consultation: "Acute on chronic heart failure; bradycardia; echo" Requesting Physician: Alex Pleitez PA-C Attending Physician: Igor Matthews MD History of Present Illness Mr. Cheatham is a 48-year-old gentleman with nonischemic cardiomyopathy, frequent PVCs, heart failure with reduced EF, sleep apnea on CPAP nightly, and depression/anxiety disorder. He resides at [facility]. His primary drywall finishing foreman is Dr. Bhat. He has had the following studies/procedures: 1. Echo 06/24/2023: Dilated LV with severely reduced systolic function. EF 15 to 20%. Global hypokinesis. Mild left atrial dilation. No significant valvular abnormalities. 2. Cardiac cath 06/24/2023: No significant CAD reported. LVEDP 9. He was diagnosed with nonischemic cardiomyopathy in June 2023 when seen by [facility] cardiology during hospitalization at [facility]. He has since followed in the outpatient office with Dr. Bhat and Mr. Rudy Parker PA-C. He was last seen on 10/07/2023 at which point Entresto was increased to 49/51 mg. Spironolactone was also increased to 25 mg daily from 12.5 mg. He was admitted on 10/16/2023 with acute shortness of breath and dizziness. He woke up early this morning with paroxysmal nocturnal dyspnea, orthopnea, and substernal chest pressure. The chest pressure has since subsided. He also noted dizziness, described as the room spinning when he got up from a seated position to a standing position. This still occurs if he stands up. He had transient nausea as well. He was not wearing CPAP on this particular night. While here, he has diuresed according to patient report and his breathing has significantly improved. He remains chest pain-free. Admitting records states that he was consuming foods high in sodium content but he was in the restrictive housing unit (as punishment for a fight) and he states that he has not been receiving foods high in sodium content, but rather low- sodium choices. He takes his medications daily however he got them several hours late and took them in the evening in the restrictive housing unit. Review of systems: As above. Review of systems otherwise negative/unremarkable. Family history: No known premature CAD. No family history of sudden cardiac at a young age. Social history: He quit smoking in 2019. Denies alcohol. Originally from [place]. 3 adult children. Resides at [facility]. 2 residential guards were present at the bedside. Allergies Allergy/AdvReac Type Severity Reaction Status Date / Time No Known Allergies Allergy Verified 10/16/23 10:07 Home Medications Medication Instructions Recorded Confirmed Type omeprazole 40 mg capsule,delayed 40 mg PO QAM 03/11/21 10/16/23 History release albuterol sulfate 90 mcg/actuation 2 puff inhalation QID PRN 06/23/23 10/16/23 History aerosol inhaler Shortness Of Breath Or Wheezing aspirin 81 mg tablet,delayed 81 mg PO DAILY 06/23/23 10/16/23 History release furosemide 20 mg tablet (Lasix) 20 mg PO QAM 06/23/23 10/16/23 History gabapentin 300 mg capsule 300 mg PO TID 06/23/23 10/16/23 History metoprolol succinate 50 mg 50 mg PO QAM #30 tabs 06/25/23 10/16/23 Rx tablet,extended release 24 hr empagliflozin 10 mg tablet 10 mg PO DAILY 10/07/23 10/16/23 History (Jardiance) sacubitril 49 mg-valsartan 51 mg 1 tab PO BID #180 tabs 10/07/23 10/16/23 Rx tablet (Entresto) spironolactone 25 mg tablet 12.5 mg PO DAILY 10/07/23 10/16/23 History Patient History Medical History Abnormal echocardiogram Bladder pain Nocturia Lower urinary tract symptoms GENARO (obstructive sleep apnea) Per records Family History Other Asthma COPD (chronic obstructive pulmonary disease) Social History Smoking Status: Former smoker Tobacco Type: Cigarettes Cigarettes Per Day: 1 PPD; Do You Dip or Chew Tobacco: No; Hx Alcohol Use: No Hx Substance Use: Yes Last Used Substance: Unknown Preferred Language: Kyrgyz Communication Ability: Effective Visual Impairment: No Limitations Sterile Preparation Technician Required: No Beliefs That Will Affect Care: None marital status: Single Current Living Situation: Other Current Living Situation Comment: [facility] Feels Safe at Home: Yes Safety Concerns: Feels Safe At This Time Assistive Devices: Glasses Physical Exam Physical Exam: Gen.: No acute distress. Alert. HEENT: Anicteric sclera. Neck: No appreciable JVD. No bruits. Normal carotid upstrokes bilaterally. Cardiac: No ventricular heave. Regular with ectopy. Normal S1-S2. 1/6 systolic murmur. Pulmonary: Clear to auscultation bilaterally without wheezes, rales, or rhonchi. Abdomen: Soft, nontender, nondistended, with normoactive bowel sounds. No bruits noted. Extremities: 2+ radial pulses bilaterally. 2+ posterior tibialis pulses bilaterally. No edema or cyanosis. Results & Data Vital Signs (Past 12 Hours) Vital Signs Temp Pulse Pulse Resp BP BP Pulse Ox 10/16/23 16:21 36.4 C L 88 16 117/60 95 10/16/23 16:20 36.4 C L 88 16 117/60 95 10/16/23 12:17 85 10/16/23 10:30 81 21 113/83 98 10/16/23 09:30 74 13 127/75 96 10/16/23 09:12 82 13 110/67 95 10/16/23 08:25 72 10/16/23 08:24 49 L 15 97 10/16/23 08:24 97 10/16/23 08:24 37.0 C 46 L 14 156/74 H 97 O2 Del Method O2 Flow Rate 10/16/23 16:21 Room Air 10/16/23 16:20 Room Air 10/16/23 12:17 10/16/23 10:30 Room Air 10/16/23 09:30 10/16/23 09:12 10/16/23 08:25 10/16/23 08:24 Room Air 10/16/23 08:24 Room Air 0 10/16/23 08:24 Room Air Intake & Output 10/14/23 10/15/23 10/16/23 10/17/23 06:59 06:59 06:59 06:59 Weight 224 lb 6.889 oz Laboratory Results Laboratory Results - last 24 hr 10/16/23 10/16/23 08:20 11:01 WBC 7.12 RBC 4.99 Hgb 13.9 L Hct 42.4 MCV 85.0 MCH 27.9 MCHC 32.8 RDW Std Deviation 37.1 RDW Coeff of Bridget 12.0 Plt Count 241 MPV 10.2 Immature Gran % (Auto) 0.3 Neut % (Auto) 77.6 Lymph % (Auto) 15.2 [place] % (Auto) 5.3 Eos % (Auto) 1.0 Baso % (Auto) 0.6 Neut # (Auto) 5.53 Lymph # (Auto) 1.08 L [place] # (Auto) 0.38 Eos # (Auto) 0.07 Baso # (Auto) 0.04 Immature Gran # (Auto) 0.02 Sodium 140 Potassium 4.1 Chloride 104 Carbon Dioxide 29 Anion Gap 7 BUN 14 Creatinine 0.86 Est Cr Clr Drug Dosing 133.9 Est GFR ( Amer) 119.7 Est GFR (Non-Af Amer) 103.3 BUN/Creatinine Ratio 16.3 Glucose 110 H Calcium 9.9 Magnesium 2.2 Total Bilirubin 0.7 AST 12 L ALT 9 Alkaline Phosphatase 71 Troponin I High Sens 8.8 Total Protein 7.3 Albumin 4.5 Globulin 2.8 Albumin/Globulin Ratio 1.6 Lipase 9 L Lyme Disease Screen Negative Diagnostic Findings Labs reviewed and notable for normal renal function, normal potassium, normal magnesium level, normal high-sensitivity troponin. Cardiac cath report reviewed from 06/24/2023: No significant CAD. Normal LVEDP. ECG personally reviewed from 10/16/2023: Sinus rhythm with frequent PVCs. 85 bpm. Outpatient cardiology note from 10/07/2023 reviewed. Echo 06/24/2023: Severely dilated LV with severely reduced systolic function. EF 15 to 20%. No significant valvular disease reported. Chest x-ray 10/16/2023: Cardiomegaly. Noncongested pulmonary vasculature per radiology. Chronic interstitial thickening. ECHO 10/16/23: 1. Moderately dilated left ventricle with moderately reduced systolic function. Estimated EF 35-40%. Global hypokinesis. No left ventricular hypertrophy. Diastolic parameters do not suggest elevated left atrial pressure. 2. Mild mitral regurgitation. 3. Normal estimated right ventricular systolic pressure; RVSP 29 mmHg. 4. Very frequent PVCs, which may affect interpretation of LV systolic function. 5. Compared to prior study on 06/24/2023, LV systolic function has improved. Medications Administered Current Inpatient Medications Acetaminophen (Acetaminophen 325 Mg Tab) 650 mg PO Q4H PRN PRN Reason: Pain or Fever Stop: 11/15/23 14:35 Albuterol (Albuterol Hfa 8 Gm Inhaler) 2 puffs INH QID PRN PRN Reason: Shortness Of Breath Or Wheezing Stop: 11/15/23 14:35 Aspirin (Aspirin 81 Mg Ectab) 81 mg PO DAILY KENNEDI Stop: 11/16/23 08:59 Empagliflozin (Empagliflozin 10 Mg Tab) 10 mg PO DAILY KENNEDI Stop: 11/16/23 08:59 Enoxaparin Sodium (Enoxaparin Inj 40 Mg/0.4 Ml Syr) 40 mg SQ Q24H KENNEDI Stop: 11/15/23 20:59 Furosemide (Furosemide Inj 20 Mg/2 Ml Vial) 20 mg IV QAM [facility] Stop: 11/16/23 08:59 Gabapentin (Gabapentin 300 Mg Cap) 300 mg PO TID KENNEDI Stop: 11/15/23 14:35 Last Admin: 10/16/23 17:23 Dose: 300 mg Metoprolol Succinate (Metoprolol Succ 50mg Ext Rel Tab) 50 mg PO QAM KENNEDI Stop: 11/16/23 08:59 Pantoprazole Sodium (Pantoprazole 40 Mg Tab) 40 mg PO QAM [facility] Stop: 11/16/23 08:59 Sacubitril/Valsartan (Valsartan/Sacubitril 51/49 Mg Tab) 1 tab PO BID [facility] Stop: 11/15/23 20:59 Spironolactone (Spironolactone 12.5 Mg Tab) 12.5 mg PO DAILY [facility] Stop: 11/16/23 08:59 PG Care Time/CCT Total # of Minutes Spent Total Time Spent with Patient: Total time spent is greater than 50% in coordination of care (as documented) at patient's floor/unit and/or counseling patient: Coding Level of Care Code 34940 INT INP/OBS CARE 3/75MIN Diagnoses Acute on chronic systolic heart failure I50.23 Nonischemic cardiomyopathy I42.8 Frequent PVCs I49.3 Chest pain R07.9 Chest pain type: unspecified Dizziness R42 (4) Chest pain Chest pain type: unspecified Qualified Code(s): R07.9 - Chest pain, unspecified
--- NOTE | 2023-10-16 19:49 | XCELERA ---
[id number]
[2023-10-16] MEDS: ENOXAPARIN INJ 40 MG/0.4 ML SYR SQ SCH (20:57)
[2023-10-16] MEDS: VALSARTAN/SACUBITRIL 51/49 MG TAB PO SCH (20:57)
--- NOTE | 2023-10-17 05:57 | Electrocardiogram Report ---
Test Reason : Blood Pressure : / mmHG Vent. Rate : 085 BPM Atrial Rate : 000 BPM P-R Int : 000 ms QRS Dur : 108 ms QT Int : 400 ms P-R-T Axes : 000 065 152 degrees QTc Int : 476 ms Sinus rhythm with frequent Premature ventricular complexes Nonspecific ST and T wave abnormality Prolonged QT Abnormal ECG When compared with ECG of 03-AUG-2023 17:09, No significant change Confirmed by Yvan Norton ([id number]) on 10/17/2023 5:57:32 AM Referred By: [facility] Confirmed By:Yvan Norton
[2023-10-17 08:08] LABS: Basophils # (auto) 0.05 K/uL (0.00-0.20); Basophils % (auto) 0.8 %; Eosinophils # (auto) 0.06 K/uL (0.00-0.50); Hemoglobin 14.2 g/dl (14.0-18.0); Immature Granulocytes # (auto) 0.01 K/uL (0.01-0.20); Immature Granulocytes % (auto) 0.2 %; Mean Corpuscular Hemoglobin 28.3 pg (25.0-34.0); Mean Corpuscular Hgb Conc 33.8 g/dL (32.0-36.0); Mean Corpuscular Volume 83.8 fL (80.0-100.0); Mean Platelet Volume 10.1 fL (9.4-12.4); Monocytes # (auto) 0.53 K/uL (0.11-0.59); Monocytes % (auto) 8.5 %; Neutrophils % (auto) 65.5 %; Platelet Count 234 K/uL (130-400); RDW Coefficient of Variation 11.9 % (11.5-14.5); RDW Standard Deviation 35.9 fL (36.4-46.3); Red Blood Count 5.01 M/uL (4.70-6.10); White Blood Count 6.25 K/ul (4.8-10.8)
[2023-10-17 08:35] LABS: Calcium 8.3 mg/dl (8.6-10.3); Creatinine Clr Calc Pharmacy 150.1 ml/min; Est GFR (African American) 126.6 ml/min; Est GFR (Non-African American) 109.2 ml/min; Magnesium 1.8 mg/dl (1.7-2.4); Potassium 3.6 mmol/L (3.5-5.1)
[2023-10-17] MEDS: SPIRONOLACTONE 12.5 MG TAB PO SCH (08:40)
[2023-10-17] MEDS: FUROSEMIDE INJ 20 MG/2 ML VIAL IV SCH (08:40)
[2023-10-17] MEDS: METOPROLOL SUCC 25MG EXT REL TAB PO SCH (08:40)
[2023-10-17] MEDS ORDERED: METOPROLOL SUCC 50MG EXT REL TAB PO SCH (09:00)
--- NOTE | 2023-10-17 09:10 | Hospitalist Progress Note ---
Date of Service October 17, 2023 Assessment & Plan (1) Acute on chronic systolic heart failure: Plan: felt secondary to non ischemic cardiomyopathy he said issues with intolerance to medications in the past SOB and chest heaviness while in bed the evening of 10/14 Patient felt dizzy and nauseous when standing in the morning of 10/17/2023 Last echo on revealed LVEF at 15-20% with an elevated RVSP Repeat echocardiogram EF now 35-40% Heart healthy, low-sodium diet (1800 mL fluid restriction) Will dose reduce metoprolol from 50 further symptoms throughout the day on 10/16 heart rate is relatively low in the 50s will reduce dose to metoprolol tartrate 12.5 twice daily in the a.m. of 10/18/2023. hold lasix and spironolactone Continue Entresto, hold Jardiance in case he is having dizziness and nausea from this Hold gabapentin at this time Given persistent symptoms and inability to take p.o. or set up low-dose IV fluid to be given 1 dose of midodrine 5 Cardiology consult (2) COPD (chronic obstructive pulmonary disease): Plan: currenlty not on any disease modifying medicines (3) GERD (gastroesophageal reflux disease): Plan: on protonix nausea unclear if from angina or lower blood pressure, repeat liver function test are negative at this time Plan Full code AHA, low-sodium diet (1800 mL fluid restriction) VTE PPx: Lovenox 40 mg SQ q24h Admission and Anticipated Discharge Date Admission Date: October 16, 2023 Subjective Diagnosed with nonischemic cardiomyopathy in June 2023 after heart catheterization did have serology for reversible causes was found be negative. Subsequently the patient Miguel presents with dizziness and weakness. He has been intolerant to medications in the past. Medications were adjusted at most recent cardiology visit which was Physical Exam Physical Exam: Patient is in moderate distress feeling dizzy having vomiting postprandially blood pressure is low but not significant. Patient torsten mildly bradycardic Results & Data Results & Data Vital Signs (Past 12 Hours) Vital Signs Temp Pulse Pulse Resp BP Pulse Ox O2 Del Method 10/17/23 08:36 98.1 F 58 L 18 110/44 L 93 Room Air 10/17/23 07:21 86 10/17/23 03:43 98.2 F 54 L 18 112/60 92 Room Air 10/17/23 00:53 98.2 F 85 18 103/45 L 96 Room Air 10/17/23 00:06 77 Laboratory Results Reviewed CBC reviewed chemistry PG Care Time/CCT Total # of Minutes Spent Total Time Spent with Patient: Total time spent is greater than 50% in coordination of care (as documented) at patient's floor/unit and/or counseling patient: Coding Level of Care Code 29729 SUB INP/OBS CARE 3/50MIN Diagnoses Acute on chronic systolic heart failure I50.23 COPD (chronic obstructive pulmonary disease) J44.9 GERD (gastroesophageal reflux disease) K21.9
[2023-10-17] MEDS: ONDANSETRON INJ 2 MG/ML 2 ML VIAL IV PRN (10:04)
[2023-10-17] MEDS: PANTOprazole 40 MG TAB PO SCH (10:06)
[2023-10-17] MEDS: EMPAGLIFLOZIN 10 MG TAB PO SCH (10:06)
[2023-10-17] MEDS: ASPIRIN 81 MG ECTAB PO SCH (10:06)
[2023-10-17] MEDS: ONDANSETRON INJ 2 MG/ML 2 ML VIAL IV STA (11:30)
[2023-10-17 13:36] LABS: Albumin Level 4.6 gm/dl (3.4-5.0); Bilirubin Direct 0.1 mg/dl (0-0.2); Bilirubin,Total 0.7 mg/dl (0.2-1.0); Total Protein 7.2 gm/dl (6.0-8.3)
[2023-10-17 13:42] LABS: Troponin I High Sensitivity 5.6 pg/ml (0-20)
[2023-10-17] MEDS: SODIUM CHLORIDE 0.9% 1,000 ML IV SCH (15:57)
[2023-10-17] MEDS: MIDODRINE HCL 2.5 MG TAB PO ONE (15:58)
[2023-10-17] MEDS ORDERED: GABAPENTIN 300 MG CAP PO SCH (21:00)
[2023-10-18 07:48] LABS: Basophils # (auto) 0.08 K/uL (0.00-0.20); Basophils % (auto) 1.2 %; Eosinophils # (auto) 0.04 K/uL (0.00-0.50); Eosinophils % (auto) 0.6 %; Hematocrit (blood only) 43.6 % (42.0-52.0); Immature Granulocytes # (auto) 0.01 K/uL (0.01-0.20); Immature Granulocytes % (auto) 0.1 %; Lymphocytes # (auto) 1.57 K/uL (1.20-3.40); Lymphocytes % (auto) 23.2 %; Mean Corpuscular Hemoglobin 28.6 pg (25.0-34.0); Mean Corpuscular Hgb Conc 34.4 g/dL (32.0-36.0); Mean Corpuscular Volume 83.2 fL (80.0-100.0); Mean Platelet Volume 10.3 fL (9.4-12.4); Monocytes # (auto) 0.52 K/uL (0.11-0.59); Monocytes % (auto) 7.7 %; Neutrophils # (auto) 4.54 K/uL (1.40-6.50); Neutrophils % (auto) 67.2 %; Platelet Count 268 K/uL (130-400); RDW Coefficient of Variation 11.9 % (11.5-14.5); RDW Standard Deviation 36.3 fL (36.4-46.3); Red Blood Count 5.24 M/uL (4.70-6.10); White Blood Count 6.76 K/ul (4.8-10.8)
[2023-10-18 08:09] LABS: BUN Creatinine Ratio 15.9 (10-20); Calcium 9.9 mg/dl (8.6-10.3); Creatinine Clr Calc Pharmacy 137.3 ml/min; Est GFR (Non-African American) 105.3 ml/min; Potassium 3.9 mmol/L (3.5-5.1)
[2023-10-18 08:16] LABS: Troponin I High Sensitivity 5.8 pg/ml (0-20)
[2023-10-18] MEDS ORDERED: METOPROLOL TARTRATE 25 MG TAB PO SCH (09:00)
[2023-10-18] MEDS: VALSARTAN/SACUBITRIL 26/24MG TAB PO SCH (09:40)
--- NOTE | 2023-10-18 10:14 | Cardiology Progress Note ---
Date of Service October 18, 2023 Assessment & Plan (1) Acute on chronic systolic heart failure: (2) Nonischemic cardiomyopathy: (3) Frequent PVCs: (4) Chest pain: (5) Dizziness: Plan ASSESSMENT/PLAN: 1. Acute on chronic heart failure with reduced EF: He seems well compensated. No breathing difficulty. No sign of peripheral edema. His updated regimen consisted of metoprolol, Entresto, spironolactone and Jardiance. Metoprolol and spironolactone currently on hold. Entresto dose reduced. 2. Nonischemic cardiomyopathy: LV systolic function has improved. It is very possible that his cardiomyopathy is related to frequent PVCs. 3. PVCs: No symptoms. However, he continues to have frequent PVCs. It is very possible these are playing a role in his cardiomyopathy given the frequency. Unlikely to respond to additional beta-blockade. I think we can consider a trial of amiodarone for suppression. Alternatively, catheter based therapy can be entertained. 4. Chest pain: Resolved 5. Dizziness: His initial vital signs not demonstrate significant orthostatic hypotension. He had a very mild drop in his blood pressure without a concomitant increase in heart rate. Current symptoms seem to be occurring even at rest while lying down. Some of the symptoms sound more vertiginous in nature rather than orthostatic. Repeat orthostatic blood pressures. Continue with reduced dose medication. In the absence of documented orthostatic hypotension, we could consider treatment for labyrinthitis. ADDENDUM: Patient reported dizziness to PT when standing earlier. Documented drop in BP, but no recorded heart rate. I would agree with their recommendation which is to keep patient upright fo longer periods (ie in chair). Liberalize fluid intake, avoid diuretic and continue reduced dose of Entresto. We'll see if meclizine improves symptoms. If there is no increase in heart rate with standing despite a drop in BP, this suggests an element of autonomic dysfunction (also in the setting of nausea). Treatment would then be less volume-related and involve the addition of midodrine and/or droxidopa. Admission and Anticipated Discharge Date Admission Date: October 16, 2023 Subjective This morning the patient's main complaint was dizziness. His description of the symptoms was quite variable. He stated initially that with a towel over his head and his eyes closed he felt well. Upon opening his eyes he began to feel this dizziness and lightheadedness. He did describe a sensation of the room spinning at times. He variably describes symptoms worsening with changes in position such as sitting up. He did not report sitting up much yesterday or getting out of bed. No breathing difficulty. No chest pain. No sense of palpi tation. Review of Systems Review of Systems: Per HPI Physical Exam Physical Exam: The patient is alert and oriented. Mood and affect appeared normal. He answered all questions appropriately. HEENT: Pupils are equal and reactive to light and accommodation. Extraocular movements are intact. The sclerae are anicteric. Neuro: Cranial nerves intact Lungs: Clear to auscultation bilaterally. He has good air movement without use of accessory muscles. No rales wheezes or rhonchi. Cardiac: Heart demonstrates a regular rate and rhythm with frequent ectopy. Normal S1 and S2. No murmurs on examination. Pulses: The patient has palpable radial pulses bilaterally that are equal in intensity Extremities: There was no evidence of hypoperfusion. There is no cyanosis or clubbing. There is no edema. Skin: I did not appreciate any rashes on examination today. Results & Data Vital Signs (Past 12 Hours) Vital Signs Temp Pulse Pulse Resp BP BP Pulse Ox 10/18/23 07:25 36.9 C 48 L 20 103/50 L 92 10/18/23 04:52 36.7 C 59 L 20 112/65 96 10/17/23 23:05 36.9 C 56 L 20 98/53 L 98 10/17/23 23:00 48 L O2 Del Method 10/18/23 07:25 Room Air 10/18/23 04:52 Room Air 10/17/23 23:05 Room Air 10/17/23 23:00 Laboratory Results Abnormal Lab Results 10/17/23 10/18/23 12:50 07:27 WBC 6.76 RBC 5.24 Hgb 15.0 Hct 43.6 MCV 83.2 MCH 28.6 MCHC 34.4 RDW Std Deviation 36.3 L RDW Coeff of Bridget 11.9 Plt Count 268 MPV 10.3 Immature Gran % (Auto) 0.1 Neut % (Auto) 67.2 Lymph % (Auto) 23.2 [place] % (Auto) 7.7 Eos % (Auto) 0.6 Baso % (Auto) 1.2 Neut # (Auto) 4.54 Lymph # (Auto) 1.57 [place] # (Auto) 0.52 Eos # (Auto) 0.04 Baso # (Auto) 0.08 Immature Gran # (Auto) 0.01 Sodium 139 Potassium 3.9 Chloride 104 Carbon Dioxide 28 Anion Gap 7 BUN 13 Creatinine 0.82 Est Cr Clr Drug Dosing 137.3 Est GFR ( Amer) 122.0 Est GFR (Non-Af Amer) 105.3 BUN/Creatinine Ratio 15.9 Glucose 111 H Lactate 1.2 Calcium 9.9 Total Bilirubin 0.7 Direct Bilirubin 0.1 AST 12 L ALT 9 Alkaline Phosphatase 78 Troponin I High Sens 5.6 5.8 Total Protein 7.2 Albumin 4.6 PG Care Time/CCT Total # of Minutes Spent Total Time Spent with Patient: Total time spent is greater than 50% in coordination of care (as documented) at patient's floor/unit and/or counseling patient: Coding Level of Care Code 57986 SUB INP/OBS CARE 2/35MIN Diagnoses Acute on chronic systolic heart failure I50.23 Nonischemic cardiomyopathy I42.8 Frequent PVCs I49.3 Chest pain R07.9 Chest pain type: unspecified Dizziness R42 (4) Chest pain Chest pain type: unspecified Qualified Code(s): R07.9 - Chest pain, unspecified
--- NOTE | 2023-10-18 15:10 | Hospitalist Progress Note ---
Date of Service October 18, 2023 Assessment & Plan (1) Acute on chronic systolic heart failure: Plan: felt secondary to non ischemic cardiomyopathy he said issues with intolerance to medications in the past SOB and chest heaviness while in bed the evening of 10/14 Patient felt dizzy and nauseous when standing in the morning of 10/17/2023 remains feeling dizzy and nauseous since there is a vertiginous component Last echo on revealed LVEF at 15-20% with an elevated RVSP Repeat echocardiogram EF now 35-40% Patient has metoprolol held and reduce Entresto to lowest dose. hold lasix and spironolactone hold Jardiance in case he is having dizziness and nausea from this Hold gabapentin at this time Instituting meclizine therapy at this time to see if it improves his symptoms although he does have some variable vital signs in addition to the vertiginous symptoms Patient did have a low volume of IV fluid and a dose of midodrine without much help. Cardiology is following (2) COPD (chronic obstructive pulmonary disease): Plan: currenlty not on any disease modifying medicines (3) GERD (gastroesophageal reflux disease): Plan: on protonix nausea unclear if from angina or lower blood pressure, repeat liver function test are negative at this time Plan Full code AHA, low-sodium diet (1800 mL fluid restriction) VTE PPx: Lovenox 40 mg SQ q24h Admission and Anticipated Discharge Date Admission Date: October 16, 2023 Subjective Patient persistently complains of dizziness with a vertiginous component associate with some nausea. Is a history of cardiomyopathy and at times his blood pressures are lower. He is on Entresto. On 10/17 MED medications have been held and Entresto was reduced to its lowest dose possible. He still remains with some 20 mmHg change in orthostatic blood pressures without significant rise with tachycardia. Cardiology did evaluate the patient feels this likely may be mostly vertiginous however at this time we will get a continue to hold his medications as he remains bradycardic and institute some meclizine therapy Physical Exam Physical Exam: Patient remains in moderate distress feeling dizzy having vomiting postprandially blood pressure is low but not significant. Patient torsten mildly bradycardic Results & Data Results & Data Vital Signs (Past 12 Hours) Vital Signs Temp Pulse Pulse Resp BP Pulse Ox O2 Del Method 10/18/23 11:34 98.2 F 43 L 20 97/55 L 95 Room Air 10/18/23 08:00 85 10/18/23 07:25 98.4 F 48 L 20 103/50 L 92 Room Air 10/18/23 04:52 98.1 F 59 L 20 112/65 96 Room Air Laboratory Results Reviewed CBC reviewed chemistry Discussed case with cardiology PG Care Time/CCT Total # of Minutes Spent Total Time Spent with Patient: Total time spent is greater than 50% in coordination of care (as documented) at patient's floor/unit and/or counseling patient: Coding Level of Care Code 42450 SUB INP/OBS CARE 3/50MIN Diagnoses Acute on chronic systolic heart failure I50.23 COPD (chronic obstructive pulmonary disease) J44.9 GERD (gastroesophageal reflux disease) K21.9
[2023-10-18] MEDS: MECLIZINE HCL 25 MG TAB PO SCH (15:23)
[2023-10-19 06:35] LABS: Basophils # (auto) 0.07 K/uL (0.00-0.20); Eosinophils # (auto) 0.08 K/uL (0.00-0.50); Eosinophils % (auto) 1.1 %; Hematocrit (blood only) 42.2 % (42.0-52.0); Hemoglobin 14.3 g/dl (14.0-18.0); Immature Granulocytes # (auto) 0.01 K/uL (0.01-0.20); Immature Granulocytes % (auto) 0.1 %; Lymphocytes # (auto) 2.44 K/uL (1.20-3.40); Lymphocytes % (auto) 34.6 %; Mean Corpuscular Hemoglobin 28.3 pg (25.0-34.0); Mean Corpuscular Hgb Conc 33.9 g/dL (32.0-36.0); Mean Corpuscular Volume 83.4 fL (80.0-100.0); Mean Platelet Volume 10.4 fL (9.4-12.4); Monocytes # (auto) 0.61 K/uL (0.11-0.59); Monocytes % (auto) 8.7 %; Neutrophils # (auto) 3.84 K/uL (1.40-6.50); Neutrophils % (auto) 54.5 %; Platelet Count 269 K/uL (130-400); RDW Coefficient of Variation 11.9 % (11.5-14.5); Red Blood Count 5.06 M/uL (4.70-6.10); White Blood Count 7.05 K/ul (4.8-10.8)
[2023-10-19 06:50] LABS: BUN Creatinine Ratio 17.2 (10-20); Calcium 9.8 mg/dl (8.6-10.3); Creatinine Clr Calc Pharmacy 129.2 ml/min; Est GFR (African American) 119.1 ml/min; Est GFR (Non-African American) 102.8 ml/min; Potassium 3.6 mmol/L (3.5-5.1)
--- NOTE | 2023-10-19 10:12 | Cardiology Progress Note ---
Date of Service October 19, 2023 Assessment & Plan (1) Acute on chronic systolic heart failure: (2) Nonischemic cardiomyopathy: (3) Frequent PVCs: (4) Chest pain: (5) Dizziness: Plan ASSESSMENT/PLAN: 1. Acute on chronic heart failure with reduced EF: He seems well compensated. No breathing difficulty. No sign of peripheral edema. His updated regimen consisted of metoprolol, Entresto, spironolactone and Jardiance. Metoprolol and spironolactone currently on hold. Entresto dose reduced. 2. Nonischemic cardiomyopathy: LV systolic function has improved. It is very possible that his cardiomyopathy is related to frequent PVCs. 3. PVCs: No symptoms. I think we will try starting some amiodarone in order to suppress the PVCs. This would simply be a temporary measure to see if they can be suppressed and if this improves the heart function. 4. Chest pain: Resolved 5. Dizziness: Improved with meclizine. He claims to be ambulatory earlier today. If he is feeling better and he is ambulatory then we could consider continuing his current doses of medications and adding amiodarone as noted above. Admission and Anticipated Discharge Date Admission Date: October 16, 2023 Subjective Patient reports feeling better today. According to the patient he was ambulatory earlier today with minimal dizziness. He was also up in chair for significant amount of time yesterday. Denies any breathing difficulty. No sense of palpitation. No chest pain. Review of Systems Review of Systems: Per HPI Physical Exam Physical Exam: The patient is alert and oriented. Mood and affect appeared normal. He answered all questions appropriately. HEENT: Pupils are equal and reactive to light and accommodation. Extraocular movements are intact. The sclerae are anicteric. Neuro: Cranial nerves intact Lungs: Clear to auscultation bilaterally. He has good air movement without use of accessory muscles. No rales wheezes or rhonchi. Cardiac: Heart demonstrates a regular rate and rhythm with occasional ectopy. Normal S1 and S2. No murmurs on examination. Pulses: The patient has palpable radial pulses bilaterally that are equal in intensity Extremities: There was no evidence of hypoperfusion. There is no cyanosis or clubbing. Skin: I did not appreciate any rashes on examination today. Results & Data Vital Signs (Past 12 Hours) Vital Signs Temp Pulse Pulse Resp BP Pulse Ox O2 Del Method 10/19/23 07:37 36.8 C 45 L 20 109/53 L 97 Room Air 10/19/23 07:21 Room Air 10/19/23 07:04 87 10/19/23 03:26 37.0 C 45 L 18 98/58 L 95 Room Air 10/19/23 00:11 36.8 C 45 L 18 101/50 L 95 Room Air 10/18/23 23:00 85 Laboratory Results Abnormal Lab Results 10/19/23 05:45 WBC 7.05 RBC 5.06 Hgb 14.3 Hct 42.2 MCV 83.4 MCH 28.3 MCHC 33.9 RDW Std Deviation 36.0 L RDW Coeff of Bridget 11.9 Plt Count 269 MPV 10.4 Immature Gran % (Auto) 0.1 Neut % (Auto) 54.5 Lymph % (Auto) 34.6 [place] % (Auto) 8.7 Eos % (Auto) 1.1 Baso % (Auto) 1.0 Neut # (Auto) 3.84 Lymph # (Auto) 2.44 [place] # (Auto) 0.61 H Eos # (Auto) 0.08 Baso # (Auto) 0.07 Immature Gran # (Auto) 0.01 Sodium 141 Potassium 3.6 Chloride 106 Carbon Dioxide 29 Anion Gap 6 BUN 15 Creatinine 0.87 Est Cr Clr Drug Dosing 129.2 Est GFR ( Amer) 119.1 Est GFR (Non-Af Amer) 102.8 BUN/Creatinine Ratio 17.2 Glucose 106 H Calcium 9.8 PG Care Time/CCT Total # of Minutes Spent Total Time Spent with Patient: Total time spent is greater than 50% in coordination of care (as documented) at patient's floor/unit and/or counseling patient: Coding Level of Care Code 78823 SUB INP/OBS CARE 2/35MIN Diagnoses Acute on chronic systolic heart failure I50.23 Nonischemic cardiomyopathy I42.8 Frequent PVCs I49.3 Chest pain R07.9 Chest pain type: unspecified Dizziness R42 (4) Chest pain Chest pain type: unspecified Qualified Code(s): R07.9 - Chest pain, unspecified
--- NOTE | 2023-10-19 17:22 | Discharge Summary ---
Date of Service October 19, 2023 Admission HPI Per Admitting Provider Aj is a 48-year-old male with PMH of COPD, GERD, depression, asthma, umbilical hernia, BPH, systolic CHF, and non-ischemic cardiomyopathy. He presented from [facility] for acute onset of SOB that developed while lying in bed last night onset 10/14. Patient also notes he had intermittent chest "heaviness", located mainly on the left side. He believes it was associated with SOB. No radiation to the shoulder or jaw or down the arm. He rated the chest heaviness 4/10 at worst. Denies chest pain. The SOB was at rest, and he is unsure if it is worse when he was lying flat on his back; however, he reports that he was in restrictive housing, and could not elevate his head or body. Patient then woke up, and went to stand and felt like the room was spinning. He denies fainting; however, he felt like he was going to throw up at that time. No prior experiences like this one. He denies PMH of [place], CVA, syncope, or cardiac history. He denies any recent rashes or tick bites. No supplemental oxygen at the correction. He does vape, and is a former tobacco cigarette smoker. He denies recent alcohol use, or recreational drug use. It should be noted that patient takes medication daily, but did not take his medications yesterday in the morning as they were unavailable; he took the medications he usually takes at 6 AM late at night. He then took his regular pills again today this morning. He does follow with [facility] since June 2023 after an abnormal echocardiogram showed LVEF 15-20%. In regard to diet, patient reports that he has been restricted housing for the last few days, and is therefore been having food like chips, soup, and similar sausage. Per EMS, HR dropped to 30 bpm briefly. Patient's vitals are stable at time of admission. ED course: ROS: Patient endorses SOB at rest, chest heaviness, dizziness/lightheadedness when standing, and nausea. Patient denies fever, chills, night sweats, headache, changes in vision, chest pain, orthopnea, cough, vomiting, diarrhea, change in urinary or bowel habits, or leg swelling. Principal Diagnosis Dizziness from iatrogenic source (medications) vs acute on chronic systolic heart failure Discharge Exam Patient is comfortable. No longer dizzy. Heart: RRR Lungs: clear Discharge Data Allergies Allergy/AdvReac Type Severity Reaction Status Date / Time No Known Allergies Allergy Verified 10/16/23 10:07 Consultations 10/16/23 09:37 ED Decision to Admit Stat 10/16/23 14:36 Consult Cardiology Routine 10/18/23 07:49 Consult Cardiology Routine Hospital Course (1) Acute on chronic systolic heart failure: felt secondary to non ischemic cardiomyopathy he said issues with intolerance to medications in the past SOB and chest heaviness while in bed the evening of 10/14 Patient felt dizzy and nauseous when standing in the morning of 10/17/2023 remains feeling dizzy and nauseous since there is a vertiginous component Last echo on revealed LVEF at 15-20% with an elevated RVSP Repeat echocardiogram EF now 35-40% Patient has metoprolol held and reduce Entresto to lowest dose. held lasix and spironolactone during hospital stay in case decrease in preload was precipitated symptoms held Jardiance in case he is having dizziness and nausea from this Held gabapentin meclizine therapy appeared to have improved his symptoms although he does have some variable vital signs in addition to the vertiginous symptoms Patient did have a low volume of IV fluid and a dose of midodrine without much help. Cardiology is following: Started on amiodarone 400mg bid for 10 days then 200mg daily. arrange fu with Home At discharge, will resume gabapentin at a lower dose but with plans to slowly increase if patient tolerates this. Resume lasix but will hold spironolactone. will hold metoprolol but continue entresto at lower dose. Hold Jardiance. amiodarone as above. (2) COPD (chronic obstructive pulmonary disease): currenlty not on any disease modifying medicines (3) GERD (gastroesophageal reflux disease): on protonix symptoms improved Total Time Total Time Spent Total Time Spent (In Minutes): 32 Discharge Plan Discharge Items [facility] Disposition: [facility] Reason For Visit: SOB, CHEST HEAVINESS Discharge Diagnosis: SOB Activity: Resume your previous activity Non-emergency contact: Primary Care Provider Call non-emergency contact if: you have any medication questions Follow-up/Referrals: Fran SANTIAGO [Primary Care Provider] - Diet: Heart Healthy and Low Sodium (2gm) Addtl Attending Provider Instructions: Will start on amiodarone 400mg twice a day for 10 days then 200mg daily. You will followup with Dr. Bhat. Will hold jardiance, metoprolol and spironolactone due to dizziness. Will continue gabapentin at a lower dose, and will recommend slowly titrating upwards but monitoring for symptoms of dizziness. Pending Studies at Discharge: No Stand-Alone Forms: My [facility] Skilled Items Patient informed of condition?: Yes Discharge Level of Care: Skilled Communicable Disease: No Discharge Prognosis: Stable Lines: None Urinary Catheter: No Medications and DC Order Prescriptions: New meclizine 25 mg Tablet 25 mg PO TID PRN (Reason: dizziness) Qty: 20 0RF Entresto 24-26 mg Tablet 1 tab PO BID Qty: 30 0RF amiodarone 200 mg tablet 200 mg PO DAILY Qty: 60 0RF Rx Instructions: amiodarone 400mg bid for 10 days then 200mg daily. Continued omeprazole 40 mg capsule,delayed release(DR/EC) 40 mg PO QAM aspirin 81 mg Tablet,Delayed Release (Dr/Ec) 81 mg PO DAILY furosemide [Lasix] 20 mg Tablet 20 mg PO QAM albuterol sulfate 90 mcg/actuation Hfa Aerosol Inhaler 2 puff INHALATION QID PRN (Reason: Shortness Of Breath Or Wheezing) Changed gabapentin 300 mg Capsule 300 mg PO PM Qty: 0 0RF Held Jardiance 10 mg tablet 10 mg PO DAILY Hold Instructions: Resume on 11/02/23. until followup with cardio Discontinued spironolactone 25 mg tablet 12.5 mg PO DAILY Entresto 49-51 mg tablet 1 tab PO BID Qty: 180 3RF metoprolol succinate 50 mg Tablet Extended Release 24 Hr 50 mg PO QAM Qty: 30 0RF Discharge Orders: Discharge Order (Routine); Ordered 10/19/23 Ordered By: Nirmal Payne Admission Data Admit Date/Time: 10/16/23 10:45 Attending Provider: Nirmal Payne Admit Provider: Igor Matthews Primary Care Provider: Fran SANTIAGO Other Providers: Mio Sepulveda Alexander W.; Iam Childers Other Interventions: Discharge Summary Assessment (RN) Last Done: 10/19/23 17:56 Coding Level of Care Code 99194 INP/OBS DISCH >30 MIN Diagnoses Acute on chronic systolic heart failure I50.23 COPD (chronic obstructive pulmonary disease) J44.9 GERD (gastroesophageal reflux disease) K21.9
== END 2023-10-19 20:00 | DRG 291 ==
LOC: ED 08:07 → EDINP 10:45 → SUATTDRO 10:45 → 2W 14:19